=== PATIENT | male | born 1965 | race Caucasian/White ===

== ENCOUNTER → 2017-12-21 00:46 | Outpatient (CLI) | payer OTHER, SELFPAY ==
--- NOTE | 2017-12-21 08:15 | MERGEMPI_ITS ---
*[facility]* *[facility]* [address] [place] [address] Myocardial Perfusion Imaging - SPECT Jeff protocol Date of study: 12/21/2017 *PATIENT PRESENTATION* Height: 177.8cm (70in) Blood Pressure: Weight: 109.1kg (240lb) BSA: 2.36m^2 Referring physician: Michael Trevizo Ordering physician: Dinora Wilks Impressions: - Normal perfusion by Tc99m Sestamibi Imaging. - Abnormal contraction consistent with cardiomyopathy. - High risk of cardiac events. Summary: 1. Myocardial perfusion imaging: The left ventricle is hahh-qo-xxbnkkrpqa dilated. No myocardial perfusion defects noted. 2. The left ventricular end-systolic volume is 101ml. The calculated left ventricular ejection fraction after stress: 23%. LV global systolic function is severely reduced. Diffuse left ventricular regional motion abnormalities. 3. Stress ECG conclusions: The stress ECG is negative. 4. Stress: The target heart rate was achieved. The heart rate response to stress is exaggerated. There is a normal resting blood pressure with an appropriate response to stress. Stress-induced chest pain which resolved spontaneously. Exercise capacity is fair (5.8 METS). Recommendations: 1. Holter monitor should be performed to assess heart rate control. 2. Medical management for Afib and systolic heart failure is recommended. 3. Cardiology consult is recommended and has been arranged for 12/26/[address] Dan. Indication: I48.91. History: REASON FOR TESTING: Risk factors: REASON FOR TESTING: MY HEART WASN'T BEATING RIGHT- SEEN AT [facility] 11/21/17 FOR C/O COUGH, TOLE THAT HIS HEART RHYTHM WAS NOT NORMAL. ECHO DONE 12/07/[address] [facility]. IN ATRIAL FIBRILLATION ON ECHO. PMH: NEWLY DX WITH A FIB. FAMILY HX: NO FAMILY HX. SMOKING: NEVER SMOKER. EXCERCISE: NO REGULAR EXCERCISE. 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 Obesity. Cholesterol: 165mg/dl. HDL: 57mg/dl. LDL: 97mg/dl. Triglycerides: 80mg/dl. ALLERGIES: AMOXICILLIN, DOXYCYCLINE. MEDICATIONS: IBUPROFEN 600 MG TWICE DAILY. STARTED ON METOPROLOL 25 MG DAILY AND XARELTO 20 MG DAILY. Imaging Technique: Protocol: Jeff protocol. Acquisition: Gated SPECT; 1 day - rest/stress. The patient was imaged in the supine position. Attenuation correction used. Isotope administration: - Rest. Tc[99m]-sestamibi. Dose: 10.3mCi. Injection time: 08:15 AM. Injection to stress time: 00:45. - Stress. Tc[99m]-sestamibi. Dose: 33mCi. Injection time: 09:55 AM. 1-2 min before end of exercise Baseline ECG: NO EKG FOR COMPARISON, HAD ATRIAL FIBRILLATION ON ECHO, SEE ECHO REPORT FROM 12/07/17. TODAY'S EKG-ATRIAL FIBRILLATION, HR 104. Atrial fibrillation. Stress protocol: + +---+ + !Stage !HR !BP (mmHg) ! + +---+ + !Baseline supine !104!120/80 (93)! + +---+ + !Baseline standing !118!118/80 (93)! + +---+ + !Stage I; 1.7mph, 10degrees; 3 min!190!132/74 (93)! + +---+ + !Recovery; 1 min !182!120/68 (85)! + +---+ + !Recovery; 3 min !125!140/76 (97)! + +---+ + !Recovery; 6 min !117!114/78 (90)! + +---+ + * Stress results: Maximal heart rate during stress was 211bpm (124% of maximal predicted heart rate). The maximal predicted heart rate was 170bpm. The target heart rate was achieved. The heart rate response to stress is exaggerated. There is a normal resting blood pressure with an appropriate response to stress. The rate-pressure product for the peak heart rate and blood pressure was 39109wt Hg/min. Stress-induced chest pain which resolved spontaneously. Exercise capacity is fair (5.8 METS). Stress ECG: EXCERCISE TESTING ENDED IN 4 MINS DUE TO FATIGUE AND ELEVATED HR. MAX HR WAS 211, 124% OF TARGET. NORMAL BLOOD PRESSURE RESPONSE. METS: 5.81 ECTOPY: VEB'S NOTED, MOST OCCURED IN THE 2ND MINUTE OF RECOVERY. ANGINA: 2/10 CHEST TIGHTNESS REPORTED IN THE 3RD MINUTE OF EXCERCISE, NO LONGER PRESENT AT 2 MINS OF RECOVERY. ISCHEMIA: NO ISCHEMIC CHANGES NOTED FUNCTIONAL CAPACITY: MARKEDLY DIMINISHED CAPACITY. The stress ECG is negative. Tello treadmill score: 0. This score predicts a moderate risk of cardiac events. Myocardial perfusion: Imaging information: gated. The left ventricle is feun-ub-srwpmoultw dilated. No myocardial perfusion defects noted. Ventricular Function (Wall Motion): The left ventricular end-systolic volume is 101ml. The calculated left ventricular ejection fraction after stress: 23%. LV global systolic function is severely reduced. Diffuse left ventricular regional motion abnormalities. Study data: Michael Trevizo MD supervised and was readily available during the procedure. This study was interpreted by [facility]. Study status: Routine. Consent: The risks, benefits, and alternatives to the procedure were explained to the patient and informed consent was obtained. Procedure: Initial setup. A baseline ECG was recorded. Surface ECG leads and manual cuff blood pressure measurements were monitored. Heart sounds: Normal. Lung sounds: Normal. Treadmill exercise testing was performed using the Jeff protocol. Study completion: All catheters inserted during the procedure were removed. The patient tolerated the procedure well and was discharged from the lab. Discharge: The patient left the laboratory in stable condition. Birthdate: Patient birthdate: 1965. Sex: Gender: male. Study date: Study date: 12/21/2017. Study time: 12:30 PM. Signature Documentation: - The imaging portion of this study was interpreted by Nuclear Medical Chemist Michael Trevizo MD. - The Stress ECG portion of this study was interpreted by Michael Trevizo MD. Electronically signed by Michael Trevizo 12/21/2017 12:56
== END ==
PROVIDERS: PCP Nurse Practitioner; Visit Provider Nurse Practitioner
DX: I48.91 Unspecified atrial fibrillation (principal)
CPT/HCPCS: 78452; 93017

== ENCOUNTER → 2017-12-22 04:23 | Outpatient (CLI) | payer OTHER, SELFPAY ==
--- NOTE | 2017-12-26 10:43 | HOLTER_ITS ---
DATE OF DICTATION: December 26, 2017 Atrial fibrillation throughout recording period. Nocturnal heart rates approximately 70-80 bpm, daytime heart rates approximately 110-120 bpm. Rare single premature ventricular contractions vs aberrantly conducted beat. Ten couplets. No vent ricular tachycardia. Nocturnal heart rates as low as 60 bpm. Symptoms: Chest tightness noted 4 times during atrial fibrillation at 93-[address]/T wave yepez ges. Lightheadedness noted twice during atrial fibrillation at 118-121 bpm. Average heart rate 88 bpm, range 56-160 bpm.
== END ==
PROVIDERS: PCP Nurse Practitioner; Visit Provider Nurse Practitioner
DX: I48.91 Unspecified atrial fibrillation (principal); R07.89 Other chest pain; R42 Dizziness and giddiness
CPT/HCPCS: 93225

== ENCOUNTER → 2017-12-26 08:24 | Outpatient (CLI) | payer OTHER, SELFPAY | PROVIDERS: PCP Nurse Practitioner; Visit Provider Nurse Practitioner | DX: I48.91 Unspecified atrial fibrillation (principal); R07.89 Other chest pain; R42 Dizziness and giddiness | CPT/HCPCS: 93226 ==

== ENCOUNTER 2018-01-12 08:32 | Outpatient (CLI) | payer OTHER, SELFPAY ==
[2018-01-12 09:12] LABS: HCT 38.4 % (40.0-50.0); HGB 12.9 g/dL (13.5-17.5); Mean Corp. HGB Concentration 33.6 g/dL (32.0-36.0); Mean Corpuscular Volume 83.3 fL (80-95); Mean Platelet Volume 10.4 fL (8.0-11.0); Platelet Count 181 x1000/uL (130-400); RBC 4.61 m/cumm (4.50-6.00)
[2018-01-12 10:08] LABS: Anion Gap 3.8 mmol/L (3-11); BUN 20 mg/dL (7-18); CO2 29.2 mmol/L (21.0-32.0); CREATININE 0.93 mg/dL (0.70-1.30); Chloride 106 mmol/L (98-107); NT-proBNP 547 pg/mL; Potassium 4.1 mmol/L (3.5-5.1); Sodium 139 mmol/L (136-145)
== END 2018-01-12 08:33 ==
PROVIDERS: PCP Nurse Practitioner; Visit Provider Internal Medicine Interventional Cardiology
DX: I48.91 Unspecified atrial fibrillation (principal); I42.9 Cardiomyopathy, unspecified
CPT/HCPCS: 36415; 80051; 84520; 85027; 82565; 83880

== ENCOUNTER 2018-03-08 12:21 | Emergency (ER) | payer OTHER, SELFPAY ==
[2018-03-08] VITALS (11 sets, daily range): BP systolic 119–124; BP diastolic 60–84; PULSE 59–82; RESP 0–30; TEMP 37; O2SAT 94–99
--- NOTE | 2018-03-08 12:57 | DI.RAD_ITS ---
SYMPTOMS/DIAGNOSIS: PALPITATIONS PA AND LATERAL CHEST: There are no prior comparison exams. The heart is mildly enlarged. The lungs are well inflated and clear. No infiltrate, effusion or pulmonary edema is seen. IMPRESSION: Cardiomegaly. No acute abnormality.
--- NOTE | 2018-03-08 13:01 | ED.GENADUL_ITS ---
Discharge Plan Disposition Patient Disposition: HOME Condition: Fair Discharge Details Chief Complaint: Palpitatns Clinical Impression: Atrial fibrillation Primary Care Provider: Dinora Wilks ED Provider: Alexsandra Zhang Home Meds and New Rx's Prescriptions: New furosemide [Lasix] 20 mg tablet 40 mg PO DAILY Qty: 20 RF: 0 Continue ibuprofen 200 MG capsule 600 mg PO BID RF: 0 rivaroxaban [Xarelto] 20 MG tablet 20 mg PO DAILY RF: 0 spironolactone 25 MG tablet 12.5 mg PO DAILY Qty: 90 RF: 4 lisinopril 10 MG tablet 10 mg PO DAILY Qty: 90 RF: 4 Metoprolol Succinate 50 MG TAB.ER.24H 37.5 mg PO DAILY Qty: 90 RF: 4 Discontinued furosemide 20 mg tablet 20 mg PO DAILY Qty: 30 RF: 3 Discharge Instructions Instructions: Atrial Fibrillation (ED) Additional Instructions: Increase dosing of Lasix to 40mg daily. Please follow previous recommendations made by Dr. Dan. Keep appointment for Tuesday. If you develop shortness of breath, difficulty breathing, chest pain or other new/worsening symptoms please seek care urgently once again Referrals: Ben Dan MD [ NON-[facility] STAFF PHYSICIAN] - Dinora Wilks [Primary Care Provider] - Medical Decision Making Patient 52-year-old male, accompanied by his , with chief complaint of palpitations. Patient has known history of atrial fibrillation. He has been rate controlled since November metoprolol. States that he is asymptomatic. Denies any chest pain. States he had cough since his diagnosis in November of atrial fibrillation. However, recently the cough is increased. Also reports that he has had weight gain over the past 3 days of 5 pounds. 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 Patient has not been cardioverted historically. Patient appears nontoxic. Heart is regular. Pulse is 82, patient's oxygen is 95% on room air. He is afebrile. No nasal congestion, sore throat. He denies any GI upset. Calves are soft and nontender with no edema noted. Patient is on spironolactone and furosemide. Patient has history of cardiomyopathy, concern for sleep apnea. Patient is followed by Dr. Dan. Plan to obtain laboratory evaluation chest x-ray. At this point, I do not see an imminent need to cardiovert the patient. Lungs are clear. No pedal edema. Patient is well rate controlled with a rate of 82. Not hypoxic. Patient last ate 1 hour ago. will obtain chest x-ray to evaluate. We will consult with cardiology EKG reviewed by Dr. Louis Christiansen, please see his note. Patient is noted to be irregularly irregular with consistent with his history of atrial fibrillation, no acute ischemic changes noted Laboratory evaluation without significant abnormality. His BNP is elevated at over 700 but this is only slightly elevated from when this was assessed a few months ago. Troponin is less than 0.02. Discussed chest x-ray with the radiologist. She notes cardiomegaly but no acute abnormalities in the lungs. Patient reports that he has known cardiomegaly. Consulted with Dr. Dan. He reports that he had plan to cardiovert the patient this past Tuesday but was unable to keep the appointment. has now reviewed laboratory evaluation, patient's clinical presentation. At this point , he does not feel the patient needs to be emergently cardioverted. He advised he will see the patient next week. He is asked that I increase his Lasix from 20 mg daily to 40. Discussed this plan with the patient. Patient's was able to contact Dr. Dan office and get an appointment for cardioversion on Tuesday. Discussed plan with the patient his . He was given a prescription for Lasix. His appointment with cardiology on Tuesday for cardioversion and his preparatory guidelines. We discussed new/worsening symptoms when to seek care urgently once again. All his questions and concerns were addressed and he is in agreement this plan. [facility] General Mode of arrival: ambulatory . Date/Time Provider Initiated Documentation: 03/08/18 12:29 . Limitations to Documentation: no limitations . Information obtained by: patient and family . History of Present Illness 52 year old M presents to the emergency department with the chief complaint of cough, weight gain, described as moderate (denies any pain), Patient denies radiation to back, neck and abdomen. Patient started experiencing this month(s ) and it has been constant. No relieving factors improve symptom(s), No exacerbating factors reported . Patient notes cough; denies chest pain, fever/ chills, headaches, loss of appetite, nausea/vomiting, rash, shortness of breath and syncope. Related Data Home Medications Medication Instructions Recorded Confirmed ibuprofen 600 mg PO BID 06/23/16 03/08/18 lisinopril 10 mg PO DAILY #90 tab 12/26/17 03/08/18 rivaroxaban [Xarelto] 20 mg PO DAILY tab-cap 12/26/17 03/08/18 spironolactone 12.5 mg PO DAILY #90 tab-cap 12/26/17 03/08/18 furosemide [Lasix] 40 mg PO DAILY #20 tab 03/08/18 Previous Rx's Medication Instructions Recorded lisinopril 10 mg PO DAILY #90 tab 12/26/17 spironolactone 12.5 mg PO DAILY #90 tab-cap 12/26/17 furosemide [Lasix] 40 mg PO DAILY #20 tab 03/08/18 Allergies Allergy/AdvReac Type Severity Reaction Status Date / Time doxycycline Allergy Intermediate Hives Unverified 03/08/18 12:35 amoxicillin Allergy Unknown Hives Unverified 03/08/18 12:35 General Stated Complaint: Palpitatns KYREE: 3 Review of Systems Constitutional Reports as per HPI and Denies headache(s) ENT Denies headache(s) Cardiovascular Reports as per HPI, Denies chest pain, Denies syncope, Denies palpitations and Reports dyspnea on exertion Respiratory Reports cough (reports cough for the past several months, it has been increasing in frequency), Denies pain on inspiration, Denies pain with cough and Reports dyspnea on exertion Gastrointestinal Denies abdominal pain, Denies change in stool character, Denies nausea and Denies vomiting Musculoskeletal Denies back pain Integumentary/Breasts Denies rash Neurologic Denies syncope, Denies headache(s) and Denies focal weakness Endocrine Denies palpitations [facility] Social History Smoking/Tobacco Use Status: Never Exam Const General: cooperative, healthy appearing, comfortable, no acute distress, well developed and well groomed Nutritional Appearance: well nourished and overweight Orientation: alert and awake Eyes General: appearance normal, both eyes and all related structures Resp Effort & Inspection: normal respiratory effort, able to speak in complete sentences and no respiratory distress Auscultation: clear to auscultation bilaterally, no rales, no rhonchi and no wheezes Cardio Rate: regular rate Rhythm: abnormal rhythm irregularly irregular Heart Sounds: S1 normal and S2 normal GI Inspection: normal to inspection Palpation: soft, not firm, no guarding and nontender Skin General skin exam: no rashes or lesions noted Lesions: no lesions Rashes: no rashes Neuro General: alert Cognition: normal cognition Speech: speech normal Gait: normal gait Extrem General: no pedal edema, no calf tenderness and normal gait Psych Appearance: grossly normal and well kempt Mental Status: mental status grossly normal Speech and Movement: speech and movement normal Mood: congruent mood Course Vital Signs Temperature 37 C 03/08/18 12:32 Pulse 82 03/08/18 12:32 Respiratory Rate 20 03/08/18 12:32 Blood Pressure 123/76 03/08/18 12:32 Pulse Oximetry 95 03/08/18 12:32 Temperature 37 C 03/08/18 12:32 Temperature Source Skin 03/08/18 12:32 Pulse 82 03/08/18 12:32 Respiratory Rate 20 03/08/18 12:32 Respiratory Effort Non-Labored 03/08/18 12:32 Blood Pressure 123/76 03/08/18 12:32 Blood Pressure Position Supine 03/08/18 12:32 Pulse Oximetry 95 03/08/18 12:32 Oxygen Delivery Method Room Air 03/08/18 12:32 Oxygen Flow Rate 0 03/08/18 12:32 Pain Level 0 03/08/18 12:32
[2018-03-08] MEDS: Normal Saline 1,000 ML 150 ML IV (13:10)
[2018-03-08 13:15] LABS: Abs Immature Grans 0.01 k/cumm (0.0-0.09); Absolute Basophil Count 0.02 k/cumm (0.0-0.2); Absolute Eosinophil Count 0.23 k/cumm (0.0-0.7); Absolute Lymphocyte Count 1.93 k/cumm (1.2-3.4); Absolute Monocyte Count 0.46 k/cumm (0.11-0.7); Absolute Neutrophil Count 3.95 k/cumm (1.2-6.7); Basophils % 0.3; Eosinophils % 3.5; HCT 39.9 % (40.0-50.0); HGB 13.4 g/dL (13.5-17.5); Immature Grans % 0.2; Lymphocytes % 29.2; Mean Corp. HGB Concentration 33.6 g/dL (32.0-36.0); Mean Corpuscular Hemoglobin 27.7 pg (27.0-33.0); Mean Corpuscular Volume 82.6 fL (80-95); Mean Platelet Volume 10.1 fL (8.0-11.0); Neutrophils % 59.8; Platelet Count 209 x1000/uL (130-400); RBC 4.83 m/cumm (4.50-6.00); RBC Distribution Width 13.4 % (11.8-14.1)
[2018-03-08 13:32] LABS: ALT 85 U/L (12-78); AST 32 U/L (15-37); Albumin 3.5 g/dL (3.4-5.0); Alkaline Phosphatase 64 U/L (46-116); Anion Gap 7.5 mmol/L (3-11); BUN 19 mg/dL (7-18); Bilirubin, Total 0.3 mg/dL (0.2-1.0); CO2 30.5 mmol/L (21.0-32.0); CREATININE 0.98 mg/dL (0.70-1.30); Calcium 8.9 mg/dL (8.5-10.1); Chloride 102 mmol/L (98-107); Glucose 90 mg/dL (70-100); Magnesium 1.7 mg/dL (1.8-2.4); Potassium 3.7 mmol/L (3.5-5.1); Sodium 140 mmol/L (136-145); Total Protein 7.4 g/dL (6.4-8.2); Troponin I < 0.02 ng/mL (0.00-0.06)
[2018-03-08 13:40] LABS: NT-proBNP 756 pg/mL; TSH 2.01 uIU/mL (0.358-3.74)
== END 2018-03-08 15:26 | disposition home or self-care (01) ==
PROVIDERS: Emergency Provider Physician Assistant; PCP Nurse Practitioner
DX: I48.91 Unspecified atrial fibrillation (principal)
CPT/HCPCS: 36415; 80053; 93005; 96360; 96361; 99285; 71046; 83735; 83880; 84443; 84484; 85025; 93010

== ENCOUNTER 2018-03-13 08:24 | Outpatient (CLI) | payer OTHER, SELFPAY ==
[2018-03-13] VITALS (7 sets, daily range): BP systolic 107–119; BP diastolic 55–85; PULSE 61–107; RESP 14–20; TEMP 35.5–36.5; O2SAT 95–98
[2018-03-13] MEDS: Normal Saline 1,000 ML 30 ML IV (09:05)
--- NOTE | 2018-03-13 09:28 | NUR.NOTE ---
03/13/18 0925: CALLED CARDIOLOGY AND SPOKE WITH DR. BLACKMON CREDIT BALANCE SPECIALIST KAVIN THIS RN REQUESTED H&P WITHIN 30 DAYS. CURRENT H&P DATED 12/26/17. KAVIN STATED HE IS NOT GOING TO PUT A CURRENT H&P IN THE COMPUTER TODAY. KAVIN FAXED MOST 12/26/17 H&P. HARDCOPJaye IN CHART Nursing Note:
--- NOTE | 2018-03-13 10:22 | W.CARDVER ---
Cardioversion Date: March 13, 2018 Patient: Travis Olivas Procedure note: DC CV Patient with history of atrial fibrillation. A. fib is at least several months in duration. Has been on rivaroxaban faithfully for at least 4 weeks continuously. Risks and benefits of procedure explained to patient. Sedation provided by anesthesia. After a single application 200 J biphasic energy the patient is restored to sinus rhythm. Complications: None. Plan: Will obtain 24-hour Holter monitor in 2 weeks. We will continue metoprolol succinate 25 mg daily. Thank you for allowing me to participate in this patient's care. Sincerely: Ben Dan M.D., [facility].
--- NOTE | 2018-03-13 13:57 | NUR.NOTE ---
03/13/18 1115: PT. DISCHARGED PER DR. BLACKMON ORDERS. PT. STABLE NSR, VSS. REQUESTING PT. TO AMBULATE UP TO [facility] FOR APPOINTMENT WITH DR. BLACKMON PER ORDER. PT. STABLE UPON DISCHARGE. ACCOMPANIED TO [facility]TY [facility]ICS WITH . Nursing Note:
== END 2018-03-13 08:44 ==
PROVIDERS: PCP Nurse Practitioner; Visit Provider Internal Medicine Interventional Cardiology
DX: I48.91 Unspecified atrial fibrillation (principal); Z79.01 Long term (current) use of anticoagulants
CPT/HCPCS: 92960

== ENCOUNTER 2018-03-27 02:09 | Outpatient (CLI) | payer OTHER, SELFPAY ==
--- NOTE | 2018-03-28 16:00 | HOLTER_ITS ---
Date of dictation: March 28, 2018 Requesting Provider: Ben Dan M.D. Study Indication: Atrial fibrillation. Findings: The patient was monitored for 1 day and 8 minutes. The baseline rhythm was sinus rhythm. Average heart rate 65 bpm, range 49-118 bpm. There were 28 PVCs. There was no ventricular tachycardia. There were 85 PACs. There were 2 atrial runs, the longest 9 beats, the fastest 139 bpm. There was nocturnal bradycardia. There was no high-degree heart block. There were no pauses greater than 3 seconds. There were no symptoms reported. Final Interpretation: No significant tachy or brandi arrhythmias.
== END 2018-03-27 02:29 ==
PROVIDERS: PCP Nurse Practitioner; Visit Provider Internal Medicine Interventional Cardiology
DX: I48.91 Unspecified atrial fibrillation (principal); R00.1 Bradycardia, unspecified
CPT/HCPCS: 93225

== ENCOUNTER 2018-03-28 12:03 | Outpatient (CLI) | payer OTHER, SELFPAY | END 2018-03-28 12:23 | PROVIDERS: PCP Nurse Practitioner; Visit Provider Nurse Practitioner | DX: I48.91 Unspecified atrial fibrillation (principal); R00.1 Bradycardia, unspecified | CPT/HCPCS: 93226 ==

== ENCOUNTER 2018-04-03 10:15 | Outpatient (CLI) | payer OTHER, SELFPAY | END 2018-04-03 10:35 | PROVIDERS: PCP Nurse Practitioner; Visit Provider Internal Medicine Interventional Cardiology | DX: I48.91 Unspecified atrial fibrillation (principal); I42.9 Cardiomyopathy, unspecified | CPT/HCPCS: 93005; 93010 ==

== ENCOUNTER 2018-04-26 08:37 | Outpatient (CLI) | payer OTHER, SELFPAY ==
[2018-04-26 09:32] LABS: HCT 39.1 % (40.0-50.0); HGB 13.1 g/dL (13.5-17.5); Mean Corp. HGB Concentration 33.5 g/dL (32.0-36.0); Mean Corpuscular Hemoglobin 27.6 pg (27.0-33.0); Mean Corpuscular Volume 82.5 fL (80-95); Mean Platelet Volume 10.1 fL (8.0-11.0); Platelet Count 205 x1000/uL (130-400); RBC 4.74 m/cumm (4.50-6.00); RBC Distribution Width 13.1 % (11.8-14.1); White Blood Cell Count 5.31 k/cumm (4.4-10.8)
[2018-04-26 10:43] LABS: Anion Gap 9.2 mmol/L (3-11); BUN 17 mg/dL (7-18); CO2 30.8 mmol/L (21.0-32.0); CREATININE 0.98 mg/dL (0.70-1.30); Chloride 102 mmol/L (98-107); NT-proBNP 118 pg/mL; Sodium 142 mmol/L (136-145)
== END 2018-04-26 08:57 ==
PROVIDERS: PCP Nurse Practitioner; Visit Provider Internal Medicine Interventional Cardiology
DX: I48.91 Unspecified atrial fibrillation (principal); I42.9 Cardiomyopathy, unspecified
CPT/HCPCS: 36415; 80051; 84520; 85027; 82565; 83880

== ENCOUNTER 2018-05-04 10:20 | Emergency (ER) | payer OTHER, SELFPAY ==
[2018-05-04] VITALS (50 sets, daily range): BP systolic 97–125; BP diastolic 49–87; PULSE 53–103; RESP 11–29; TEMP 36.6–36.8; O2SAT 95–100
[2018-05-04] MEDS: Normal Saline 1,000 ML 1000 ML IV (10:36)
--- NOTE | 2018-05-04 10:39 | ED.GENADUL_ITS ---
Addendum entered and electronically signed by Ben Santos M.D. 05/04/18 12:57: Pt consented to synchronized cardioversion with propofol after being instructed on risks and benefits and has capcaity to make his own decisions. He was given 100mg propofol and had etco2, tele monitoring and spo2 monitoring. He had one 200J synchronized defib given with successful conversion to sinus rhythm. no complications, tolerated well 2nd ekg shows sinus rhythm with rate of 68, occasional pac, pr 170, no acute st t wave changes Original Note: Medical Decision Making <REAL Arellano - Last Filed: 05/04/18 22:04> Patient is a 52 year old male, accompanied by , with c/c of chest pressure and palpitations that began yesterday. Patient has history of atrial fibrillation. Was initially diagnosed in November of this year and cardioverted 1 month ago. Patient is currently anticoagulated on Xarelto, takes metoprolol daily. His atrial fibrillation is typically asymptomatic. He was seen by myself approximately 2 months ago with palpitations. At that point, I did consult with cardiology who opted to cardiovert him in a more controlled manner in their setting. Patient is unclear as to when the symptoms initially began. Was initially concerned that he was just having stress at work yesterday. He states that yesterday the pain was more severe, centrally located, nonradiating. Reports he was quite diaphoretic yesterday when he had the symptoms initially. Is currently rating his chest pressure at a 1 out of 10. Has occasional palpitations. No nausea or vomiting. No back pain. No recent illness. Denies any shortness of breath. On exam, patient is resting comfortably. Is not having irregularly irregular rhythm. Patient does seem well rate controlled with heart rate in the 70s-80s. No lower extremity edema or posterior calf discomfort. EKG was reviewed by Dr. Santos, please see his note. Patient is noted to be in atrial fibrillation but no acute ischemic changes noted As the patient's symptoms, particularly yesterday, seem atypical from his atrial fibrillation symptoms he has had historically, I am concerned for possible addition of ischemic injury. No previous diagnosis of CAD. Plan to obtain laboratory evaluation, chest x-ray and consult cardiology. Reviewed last cardiology noted. Patient began CPAP last week per his . [employer] Service [employer] had noted exertional dypnes which the patient is currently denying. Questioned his about this who advises that the patient feels this has been improving over recent weeks but she still notes him needing to slow down during exertion, more so than he had previously. Last echo November 2017, LVEF 30-35%. diffuse hypokinesia. Right ventricle mildly dilated, normal systolic function. 1+ MR. Atrial fibrillation. Stress test December 2017. PVC noted, no EKG changes. Normal perfusion. LV dilated. LVEF 23% with diffuse hypokinesia. Consulted with Dr. Dan regarding patient laboratory evaluation, current symptoms and recurrence of his atrial fibrillation he advised cardioversion and patient tolerance. Is asked that I bump his metoprolol to 50 daily. He is requested that another echo be performed prior to upcoming appointment. He advised he would like to see the patient in another 2 weeks. Discussed these recommendations with the patient is in detail. I discussed risk/benefits of conscious sedation as well as cardioversion. Patient has had cardioversion successfully in the past with propofol. Consents were signed. Propofol was administered by Dr. Santos, once the patient was sufficiently sedated, he was cardioverted in synchronized setting of 200 J. This appeared to have worked. Repeat EKG was performed and reviewed by Dr. Santos. Patient is in normal sinus rhythm Patient feeling well after cardioversion. Rate is now in the low 60s. Consult with Dr. Dan once again regarding patient's lower heart rate and the increase of metoprolol. He advised at this point he would keep it as it is and not increase the dosing Discussed this plan with the patient. We discussed new/worsening symptoms when to seek care urgently once again. Advised follow-up with Dr. Dan. Appointment for follow-up as well as echocardiogram was made and appointment times given to the patient. All of his questions and concerns were addressed and he is in agreement with this plan. <Ben Santos MD - Last Filed: 05/04/18 12:57> ECG Data Attestation: I personally reviewed and interpreted this ECG (s) as follows: Prior ECG tracings: available for review Interpretation: atrial fibrillation, qtc of 448, no acute st t wave changes HPI <REAL Arellano - Last Filed: 05/04/18 22:04> General Mode of arrival: ambulatory . Date/Time Provider Initiated Documentation: 05/04/18 10:24 . Limitations to Documentation: no limitations . Information obtained by: patient and family . History of Present Illness 52 year old M presents to the emergency department with the chief complaint of chest pressure, described as mild, with intensity rated at 1. Quality is described as other (pressure), and is localized to the chest. Patient reports no radiation. Patient started experiencing this day(s) (1) and it has been constant. No relieving factors improve symptom(s), No exacerbating factors reported . Patient notes chest pain; denies cough, fever/chills, loss of appetite, nausea/vomiting, rash, shortness of breath, syncope and weakness. Patient did receive the following treatments prior to arrival, none Related Data Home Medications Medication Instructions Recorded Confirmed ibuprofen 600 mg PO BID 06/23/16 05/04/18 Xarelto 20 mg PO DAILY tab-cap 12/26/17 05/04/18 furosemide 20 mg tablet 20 mg PO DAILY #20 tab 03/14/18 05/04/18 losartan 25 mg tablet 25 mg PO DAILY #90 tab 04/04/18 05/04/18 spironolactone 25 mg tablet 12.5 mg PO DAILY #90 tab 04/04/18 05/04/18 Previous Rx's Medication Instructions Recorded furosemide 20 mg tablet 20 mg PO DAILY #20 tab 03/14/18 losartan 25 mg tablet 25 mg PO DAILY #90 tab 04/04/18 spironolactone 25 mg tablet 12.5 mg PO DAILY #90 tab 04/04/18 Allergies Allergy/AdvReac Type Severity Reaction Status Date / Time doxycycline Allergy Intermediate Hives Unverified 05/04/18 10:32 amoxicillin Allergy Unknown Hives Unverified 05/04/18 10:32 General Stated Complaint: Palpitatns KYREE: 2 Review of Systems <REAL Arellano - Last Filed: 05/04/18 22:04> Constitutional Reports as per HPI, Denies chills, Denies fever(s), Denies headache(s), Denies lethargy and Denies poor appetite Eyes Denies change in vision ENT Denies headache(s) Cardiovascular Reports as per HPI, Reports chest pain, Reports diaphoresis (yesterday, since resolved), Denies syncope, Denies rapid heart rate, Denies pedal edema, Denies edema, Reports irregular heart rhythm, Denies leg edema, Denies lightheadedness, Denies radiating jaw, neck or arm pain, Reports palpitations, Denies dyspnea and Denies dyspnea on exertion Respiratory Reports as per HPI, Denies cough, Denies dyspnea, Denies dyspnea on exertion and Denies wheezing Gastrointestinal Reports as per HPI, Denies abdominal pain, Denies diarrhea, Denies nausea and Denies vomiting Genitourinary Denies system reviewed and no additional complaints, except as docu (denies change in urinary habits) Musculoskeletal Reports as per HPI and Denies back pain Integumentary/Breasts Reports as per HPI and Denies rash Neurologic Denies syncope and Denies headache(s) Endocrine Reports palpitations Allergic/Immunologic Denies wheezing PFSH <REAL Arellano - Last Filed: 05/04/18 22:04> Social History Smoking/Tobacco Use Status: Never Exam <REAL Arellano - Last Filed: 05/04/18 22:04> Const General: cooperative, healthy appearing, comfortable, no acute distress and well developed Nutritional Appearance: average body habitus and well nourished Orientation: alert, awake and oriented x3 HENMT Head: normal to inspection Ears: hearing grossly normal bilaterally Mouth: moist mucous membranes Chest Chest: normal inspection of the chest, normal palpation of entire chest wall and no crepitus Resp Effort & Inspection: normal respiratory effort, able to speak in complete sentences and no respiratory distress Auscultation: clear to auscultation bilaterally, no rales, no rhonchi and no wheezes Cardio Rate: regular rate Rhythm: regular rhythm and abnormal rhythm Heart Sounds: S1 normal and S2 normal GI Inspection: normal to inspection, no edema and non-distended Palpation: soft, no hepatosplenomegaly, not firm, no guarding, not rigid and nontender Auscultation: normal bowel sounds Back/Spine/Pelvis Back: no CVA tenderness Thoracic/Lumbar Spine: thoracic and lumbar spine normal to inspection Skin General skin exam: no rashes or lesions noted Trauma: no lacerations or abrasions Neuro General: alert, awake and oriented x3 Cognition: normal cognition Speech: speech normal Gait: normal gait Extrem General: normal to inspection, normal capillary refill, no pedal edema, no calf tenderness and normal gait Psych Appearance: grossly normal and well kempt Mental Status: mental status grossly normal Speech and Movement: speech and movement normal Course <REAL Arellano - Last Filed: 05/04/18 22:04> Vital Signs Pulse 90 05/04/18 10:19 Respiratory Rate 18 05/04/18 10:19 Blood Pressure 125/87 05/04/18 10:19 Pulse Oximetry 97 05/04/18 10:19 Temperature 36.7 C 05/04/18 10:20 Temperature Source Tympanic 05/04/18 10:20 Pulse 83 05/04/18 10:30 Pulse 92 H 05/04/18 10:31 Respiratory Rate 19 05/04/18 10:31 Respiratory Effort Non-Labored 05/04/18 10:30 Blood Pressure 110/81 05/04/18 10:30 Blood Pressure Mean 88 05/04/18 10:30 Blood Pressure Position Supine 05/04/18 10:20 Pulse Oximetry 96 05/04/18 10:31 Oxygen Delivery Method Room Air 05/04/18 10:20 Oxygen Flow Rate 0 05/04/18 10:20 Pain Level 1 05/04/18 10:34
[2018-05-04 10:45] LABS: Abs Immature Grans 0.01 k/cumm (0.0-0.09); Absolute Basophil Count 0.03 k/cumm (0.0-0.2); Absolute Eosinophil Count 0.27 k/cumm (0.0-0.7); Absolute Lymphocyte Count 2.08 k/cumm (1.2-3.4); Absolute Monocyte Count 0.46 k/cumm (0.11-0.7); Absolute Neutrophil Count 3.64 k/cumm (1.2-6.7); Basophils % 0.5; Eosinophils % 4.2; HCT 40.8 % (40.0-50.0); HGB 13.8 g/dL (13.5-17.5); Immature Grans % 0.2; Mean Corp. HGB Concentration 33.8 g/dL (32.0-36.0); Mean Corpuscular Hemoglobin 27.8 pg (27.0-33.0); Mean Corpuscular Volume 82.3 fL (80-95); Mean Platelet Volume 10.5 fL (8.0-11.0); Monocytes % 7.1; Platelet Count 210 x1000/uL (130-400); RBC 4.96 m/cumm (4.50-6.00); RBC Distribution Width 13.3 % (11.8-14.1); White Blood Cell Count 6.49 k/cumm (4.4-10.8)
--- NOTE | 2018-05-04 11:02 | DI.RAD_ITS ---
SYMPTOM/DIAGNOSIS: CHEST PRESSURE PA AND LATERAL CHEST: The lungs are well expanded and free of infiltrate. There is no pleural effusion. The heart is top limits of normal in size to mildly enlarged. There is some ectasia and unfolding of the thoracic aorta. The hilar structures, mediastinum and tracheal air column are intact. SUMMARY: Mild cardiomegaly. No evidence of acute cardiopulmonary disease.
[2018-05-04 11:04] LABS: ALT 106 U/L (12-78); AST 37 U/L (15-37); Albumin 3.6 g/dL (3.4-5.0); Alkaline Phosphatase 66 U/L (46-116); Anion Gap 8.1 mmol/L (3-11); BUN 21 mg/dL (7-18); Bilirubin, Total 0.5 mg/dL (0.2-1.0); CO2 29.9 mmol/L (21.0-32.0); CREATININE 1.07 mg/dL (0.70-1.30); Calcium 9.1 mg/dL (8.5-10.1); Chloride 103 mmol/L (98-107); Glucose 97 mg/dL (70-100); Magnesium 1.6 mg/dL (1.8-2.4); Potassium 4.2 mmol/L (3.5-5.1); Sodium 141 mmol/L (136-145); TSH 1.84 uIU/mL (0.358-3.74); Total Protein 7.8 g/dL (6.4-8.2)
[2018-05-04 11:08] LABS: Troponin I < 0.02 ng/mL (0.00-0.06)
[2018-05-04] MEDS: Propofol 200 MG/20 ML VIAL 100 MG IVP (12:48)
== END 2018-05-04 14:15 | disposition home or self-care (01) ==
PROVIDERS: Emergency Provider Physician Assistant; PCP Nurse Practitioner
DX: I48.91 Unspecified atrial fibrillation (principal); R00.2 Palpitations; Z79.01 Long term (current) use of anticoagulants
CPT/HCPCS: 36415; 80053; 93005; 96360; 71046; 83735; 84443; 84484; 85025; 93010

== ENCOUNTER 2018-05-11 01:30 | Outpatient (CLI) | payer OTHER, SELFPAY ==
--- NOTE | 2018-05-11 07:30 | MERGE_ITS ---
*[facility]* *[facility]* [address] [place] [address] Date of study: 05/11/2018 Transthoracic Echocardiography M-mode, complete 2D, complete spectral Doppler, and color Doppler *STUDY CONCLUSIONS* Summary: 1. Left ventricle: The cavity size was normal. Systolic function was mildly reduced. The estimated ejection fraction was 45-50%. Mild global HK, moderate hypokinesis of the inferior myocardium. Diastolic parameters were normal for age. There was no evidence of elevated ventricular filling pressure by Doppler parameters. 2. Mitral valve: There was mild regurgitation. 3. Right ventricle: The cavity size was mildly dilated. Systolic function was mildly reduced. 4. Right atrium: The atrium was moderately dilated. 5. Atrial septum: There was a small patent foramen ovale. There was a very small [id number] shunt. 6. Pulmonary arteries: Pulmonary systolic pressure was in the range of 30mm Hg to 40mm Hg. 7. Inferior vena cava: The vessel was patent and normal in size. The respirophasic diameter changes were in the normal range (greater than or equal to 50%), consistent with normal central venous pressure. *PATIENT PRESENTATION* Height: 177.8cm ((70in) ) S/D Pressure: 120 / 72 Weight: 113.4kg ((249.5lb) ) BSA: 2.41m^2 Test start time: 07:40 AM. Test stop time: 08:35 AM. ORDERING Ben Dan MD REFERRING Ben Dan MD PERFORMING [facility] CONSULTING Dinora Wilks [employer] Riya Hough RT (R)(CT), [facility] *PROCEDURE DATA* Procedure information: The patient was identified by two identifiers. This study was interpreted by [facility]. Pertinent images and digital data are archived for permanent storage and are available for subsequent review. Comparison was made to the study of 12/07/2017. Study status: Routine. Transthoracic echocardiography. M-mode, complete 2D, complete spectral Doppler, and color Doppler. A Transthoracic Echocardiogram was performed. Scanning was performed from the parasternal, apical, subcostal, and suprasternal notch acoustic windows. Images were obtained using an [id number] cardiac ultrasound machine. Image quality was adequate. Study completion: The patient tolerated the procedure well. History: PMH: Afib *CARDIAC ANATOMY* Left ventricle: The cavity size was normal. Systolic function was mildly reduced. The estimated ejection fraction was 45-50%. Regional wall motion abnormalities: Moderate hypokinesis of the inferior myocardium. The tissue Doppler parameters were normal. Diastolic parameters were normal for age. There was no evidence of elevated ventricular filling pressure by Doppler parameters. Aortic valve: Trileaflet. Doppler: There was no stenosis. There was no regurgitation. VTI ratio of LVOT to aortic valve: 0.68. Valve area (VTI): 2.3cm^2. Indexed valve area (VTI): 1cm^2/m^2. Peak velocity ratio of LVOT to aortic valve: 0.63. Valve area (Vmax): 2.2cm^2. Indexed valve area (Vmax): 0.9cm^2/m^2. Mean velocity ratio of LVOT to aortic valve: 0.71. Valve area (Vmean): 2.4cm^2. Indexed valve area (Vmean): 1cm^2/m^2. Mean gradient (S): 4.6mm Hg. Peak gradient (S): 8.8mm Hg. Aorta: Aortic root: The aortic root was normal in size. Mitral valve: Doppler: There was no evidence for stenosis. There was mild regurgitation. Valve area by pressure half-time: 3.3cm^2. Indexed valve area by pressure half-time: 1.4cm^2/m^2. Left atrium: The atrium was normal in size. Atrial septum: There was a small patent foramen ovale. There was a very small [id number] shunt. Right ventricle: The cavity size was mildly dilated. Systolic function was mildly reduced. Pulmonic valve: Doppler: There was no evidence for stenosis. There was trivial regurgitation. Peak gradient (S): 4.7mm Hg. Tricuspid valve: Doppler: There was mild regurgitation. Pulmonary artery: Poorly visualized. Pulmonary systolic pressure was in the range of 30mm Hg to 40mm Hg. Right atrium: The atrium was moderately dilated. Pericardium: There was no pericardial effusion. Systemic veins: Inferior vena cava: Well visualized. The vessel was patent and normal in size. The respirophasic diameter changes were in the normal range (greater than or equal to 50%), consistent with normal central venous pressure. Baseline ECG: Sinus bradycardia. Measurements Left ventricle Value 12/07/2017 Reference LV ID, ED, PLAX 6.0 cm 6.0 3.5 - 6.0 LV ID, ES, PLAX (H) 4.8 cm 5.0 2.1 - 4.0 LV PW thickness, ED, PLAX 0.9 cm 0.8 LV end-diastolic volume, 158 ml 124 1-p A2C LV ejection fraction, 1-p 50 % 32 A2C LV end-diastolic volume, 169 ml 112 1-p A4C LV ejection fraction, 1-p 48 % 28 A4C LV e', lateral 0.095 m/sec 0.1 LV E/e', lateral 7 9 LV e', medial 0.09 m/sec 0.097 LV E/e', medial 7 10 LV e', average 0.093 m/sec 0.098 LV E/e', average 7 10 Ventricular septum Value 12/07/2017 Reference IVS thickness, ED, PLAX 0.9 cm 1.0 LVOT Value 12/07/2017 Reference LVOT ID, A-P 2.1 cm 2.1 LVOT area 3.4 cm^2 3.5 LVOT peak velocity, S 0.94 m/sec 0.86 LVOT mean velocity, S 0.73 m/sec 0.61 LVOT VTI, S 21.7 cm 16.6 LVOT peak gradient, S 3.5 mm Hg 2.9 LVOT mean gradient, S 2.3 mm Hg 1.7 Stroke volume (SV), LVOT 74 ml 58 DP Stroke index (SV/bsa), 31 ml/m^2 23 LVOT DP Aortic valve Value 12/07/2017 Reference Aortic valve peak 1.5 m/sec 1.2 velocity, S Aortic valve mean 1.04 m/sec 0.9 velocity, S Aortic valve VTI, S 32.0 cm 21.6 Aortic mean gradient, S 4.6 mm Hg 3.5 Aortic peak gradient, S 8.8 mm Hg 5.6 VTI ratio, LVOT/AV 0.68 0.77 Aortic valve area, VTI 2.3 cm^2 2.7 Velocity ratio, peak, 0.63 0.73 LVOT/AV Aortic valve area, peak 2.2 cm^2 velocity Velocity ratio, mean, 0.71 0.68 LVOT/AV Aortic valve area, mean 2.4 cm^2 2.4 velocity Aortic valve area/bsa, 1 cm^2/m^2 0.9 mean velocity Aorta Value 12/07/2017 Reference Aortic root ID, ED 2.9 cm 2.9 Left atrium Value 12/07/2017 Reference LA ID, A-P, ES 4.1 cm 4.4 LA ID/bsa, A-P 1.7 cm/m^2 1.7 <=2.2 LA area, ES, A4C (H) 24.2 cm^2 22.1 8.8 - 23.4 LA area, ES, A2C 21 cm^2 22 LA volume/bsa, ES, 1-p A4C 35 ml/m^2 32 LA volume, ES, 2-p 73 ml 74 LA volume/bsa, ES, 2-p 30 ml/m^2 29 LA/aortic root ratio 1.38 1.52 Mitral valve Value 12/07/2017 Reference Mitral E-wave peak 0.68 m/sec 0.95 velocity Mitral A-wave peak 0.59 m/sec velocity Mitral deceleration time 228 ms 157 150 - 230 Mitral pressure half-time 66 ms 46 Mitral E/A ratio, peak 1.15 Mitral valve area, PHT, DP 3.3 cm^2 4.8 Pulmonary veins Value 12/07/2017 Reference Pulmonary vein peak 0.27 m/sec 0.47 velocity, S Pulmonary vein peak 0.42 m/sec 0.43 velocity, D Pulmonary vein velocity 0.64 1.09 ratio, peak, S/D Pulmonary vein A-wave 0.21 m/sec reversal peak velocity Tricuspid valve Value 12/07/2017 Reference Tricuspid regurg peak 2.6 m/sec 2.5 velocity Tricuspid peak RV-RA 26.1 mm Hg 24.4 gradient Right atrium Value 12/07/2017 Reference RA area, ES, A4C (H) 25.2 cm^2 25.8 8.3 - 19.5 Pulmonic valve Value 12/07/2017 Reference Pulmonic peak gradient, S 4.7 mm Hg 3 Legend: (L) and (H) halle values outside specified reference range. I have personally reviewed the images and have reviewed and edited the reported findings. Electronically signed by Ben Dan MD 05/11/2018 13:30
== END 2018-05-11 01:50 ==
PROVIDERS: PCP Nurse Practitioner; Visit Provider Nurse Practitioner Family
DX: I48.91 Unspecified atrial fibrillation (principal); I50.1 Left ventricular failure, unspecified; I34.0 Nonrheumatic mitral (valve) insufficiency
CPT/HCPCS: 93306

== ENCOUNTER 2018-05-15 09:53 | Emergency (ER) | payer OTHER, SELFPAY ==
[2018-05-15] VITALS (15 sets, daily range): BP systolic 112–119; BP diastolic 71–78; PULSE 68–83; RESP 7–20; TEMP 36.8; O2SAT 95–99
--- NOTE | 2018-05-15 10:53 | ED.GENADUL_ITS ---
Discharge Plan Disposition Patient Disposition: HOME Condition: Stable Discharge Details Chief Complaint: Chest Pain Clinical Impression: Atrial fibrillation Primary Care Provider: Dinora Wilks ED Provider: Adelia Christiansen Home Meds and New Rx's Prescriptions: Continued spironolactone 25 mg tablet 12.5 mg PO DAILY Qty: 90 RF: 4 losartan 25 mg tablet 25 mg PO DAILY Qty: 90 RF: 4 Xarelto 20 MG tablet 20 mg PO DAILY RF: 0 Metoprolol Succinate 50 MG TAB.ER.24H 37.5 mg PO DAILY Qty: 90 RF: 4 No Action cyclobenzaprine 10 mg tablet 10 mg PO TID PRN (Reason: pain) Qty: 15 RF: 0 prednisone 20 mg tablet 60 mg PO DAILY Qty: 12 RF: 0 lidocaine [Lidoderm] 5 % adhesive patch,medicated 1 patch TP DAILY Qty: 15 RF: 0 Discharge Instructions Instructions: Atrial Fibrillation (ED) Additional Instructions: Please return immediately to the emergency department if you develop any new or worsening symptoms or become otherwise concerned. It is extremely important that you attend your scheduled appointment with your agriculture instructor this afternoon as planned. Referrals: Ben Dan MD [ NON-[facility] STAFF PHYSICIAN] - Dinora Wilks [Primary Care Provider] - Discharge Data Discharge Date/Time-TO BE ENTERED AT DEPARTURE: 05/15/18 12:07 Medical Decision Making Travis Olivas is a 52 y/o man with h/o paroxysmal afib presenting to the emergency department with palpitations since last night similar to prior episodes of afib, no associated symptoms or apparent inciting events. Pt has been taking eliquis as prescribed. On exam Pt is very well and non-toxic appearing, in atrial fibrillation on rhythm strip with rate 70s. Other vitals si gns also normal. Concern for paroxysmal atrial fibrillation, doubt metabolic/lyte abnormality or ACS. Exam/hx not c/w PE, acute emergent infectious process, acute aortic pathology. Plan for EKG, screening labs, telemetry. EKG okay. Pt symptoms, HR remain unchanged. Labs okay. No indication for emergent cardioversion at this time. I discussed Pt presentation and results with Dr. Dan of cardiology, who has existing appt with Pt this afternoon; he recommends no further intervention at this time and will see Pt as scheduled today. Lengthy discussion with Pt re: RTED precautions and importance of outpt f/u with Dr. Dan, PCP. Pt verbalizes understanding of plan and is amenable. Medical Records Medical records reviewed: Yes I reviewed the patient's medical records. Lab Data Lab results reviewed: Yes I reviewed the patient's lab results. Laboratory Tests Range/Units 05/15/18 05/15/18 05/15/18 10:27 10:27 10:27 WBC (4.4-10.8) k/cumm 6.50 RBC (4.50-6.00) m/cumm 5.08 Hgb (13.5-17.5) g/dL 14.3 Hct (40.0-50.0) % 42.0 MCV (80-95) fL 82.7 MCH (27.0-33.0) pg 28.1 MCHC (32.0-36.0) g/dL 34.0 RDW (11.8-14.1) % 13.4 Plt Count (130-400) x1000/uL 205 MPV (8.0-11.0) fL 10.2 Immature Gran % 0.2 Neutrophils % 57.4 Lymphocytes % 30.5 Monocytes % 8.0 Eosinophils % 3.4 Basophils % 0.5 Absolute Neutrophils (1.2-6.7) k/cumm 3.74 Absolute Lymphocytes (1.2-3.4) k/cumm 1.98 Absolute Monocytes (0.11-0.7) k/cumm 0.52 Absolute Eosinophils (0.0-0.7) k/cumm 0.22 Absolute Basophils (0.0-0.2) k/cumm 0.03 PT (9.3-11.0) sec INR (1.0-3.5) APTT (21.0-31.4) sec Sodium (136-145) mmol/L 141 Potassium (3.5-5.1) mmol/L 4.4 Chloride (98-107) mmol/L 103 Carbon Dioxide (21.0-32.0) mmol/L 31.0 Anion Gap (3-11) mmol/L 7.0 BUN (7-18) mg/dL 23 H Creatinine (0.70-1.30) mg/dL 1.06 Estimated GFR/1.73 m2 (mL/min/1.73m2) >= 60.00 Glucose (70-100) mg/dL 97 Calcium (8.5-10.1) mg/dL 9.1 Magnesium (1.8-2.4) mg/dL 1.8 Total Bilirubin (0.2-1.0) mg/dL 0.7 AST (15-37) U/L 33 ALT (12-78) U/L 103 H Alkaline Phosphatase (46-116) U/L 68 Troponin I (0.00-0.06) ng/mL < 0.02 Total Protein (6.4-8.2) g/dL 7.6 Albumin (3.4-5.0) g/dL 3.4 TSH (0.358-3.74) uIU/mL 2.00 Range/Units 05/15/18 10:27 WBC (4.4-10.8) k/cumm RBC (4.50-6.00) m/cumm Hgb (13.5-17.5) g/dL Hct (40.0-50.0) % MCV (80-95) fL MCH (27.0-33.0) pg MCHC (32.0-36.0) g/dL RDW (11.8-14.1) % Plt Count (130-400) x1000/uL MPV (8.0-11.0) fL Immature Gran % Neutrophils % Lymphocytes % Monocytes % Eosinophils % Basophils % Absolute Neutrophils (1.2-6.7) k/cumm Absolute Lymphocytes (1.2-3.4) k/cumm Absolute Monocytes (0.11-0.7) k/cumm Absolute Eosinophils (0.0-0.7) k/cumm Absolute Basophils (0.0-0.2) k/cumm PT (9.3-11.0) sec 11.1 H INR (1.0-3.5) 1.1 APTT (21.0-31.4) sec 25.2 Sodium (136-145) mmol/L Potassium (3.5-5.1) mmol/L Chloride (98-107) mmol/L Carbon Dioxide (21.0-32.0) mmol/L Anion Gap (3-11) mmol/L BUN (7-18) mg/dL Creatinine (0.70-1.30) mg/dL Estimated GFR/1.73 m2 (mL/min/1.73m2) Glucose (70-100) mg/dL Calcium (8.5-10.1) mg/dL Magnesium (1.8-2.4) mg/dL Total Bilirubin (0.2-1.0) mg/dL AST (15-37) U/L ALT (12-78) U/L Alkaline Phosphatase (46-116) U/L Troponin I (0.00-0.06) ng/mL Total Protein (6.4-8.2) g/dL Albumin (3.4-5.0) g/dL TSH (0.358-3.74) uIU/mL ECG Data Attestation: I personally reviewed and interpreted this ECG (s) as follows: Interpretation: EKG shows atrial fibrillation at 81, normal axis, no acute ischemic changes HPI General Mode of arrival: ambulatory . Date/Time Provider Initiated Documentation: 05/15/18 10:44 . Limitations to Documentation: no limitations . Information obtained by: patient, family, RN notes reviewed and old records reviewed . HPI Narrative: Travis Olivas is a 52 y/o man with h/o afib presenting to the emergency department with palpitations. Pt reports that he has been in afib twice in the past, beginning this year. Has been cardioverted out of afib on both occasions. Pt reports that he was at rest yesterday evening when he felt himself go into afib again. Has felt unchanged palpitations continuously since onset yesterday, and is currently experiencing them with monitor showing afib at rate in 70s. Contrary to triage note, Pt denies any chest pain or any other pain. No cough, SOB, fevers, n/v/d, n/t, weakness, or lightheadedness. Has not been drinking alcohol. No recreational drugs. No recent illness, no recent travel. Has been eating and drinking as usual. Related Data Home Medications Medication Instructions Recorded Confirmed Xarelto 20 mg PO DAILY tab-cap 12/26/17 05/22/18 losartan 25 mg tablet 25 mg PO DAILY #90 tab 04/04/18 05/22/18 spironolactone 25 mg tablet 12.5 mg PO DAILY #90 tab 04/04/18 05/22/18 cyclobenzaprine 10 mg PO TID PRN #15 tab 05/22/18 lidocaine [Lidoderm] 1 patch TP DAILY #15 each 05/22/18 prednisone 60 mg PO DAILY #12 tab 05/22/18 Previous Rx's Medication Instructions Recorded losartan 25 mg tablet 25 mg PO DAILY #90 tab 04/04/18 spironolactone 25 mg tablet 12.5 mg PO DAILY #90 tab 04/04/18 cyclobenzaprine 10 mg PO TID PRN #15 tab 05/22/18 lidocaine [Lidoderm] 1 patch TP DAILY #15 each 05/22/18 prednisone 60 mg PO DAILY #12 tab 05/22/18 Allergies Allergy/AdvReac Type Severity Reaction Status Date / Time doxycycline Allergy Intermediate Hives Unverified 05/22/18 12:08 amoxicillin Allergy Unknown Hives Unverified 05/22/18 12:08 General Stated Complaint: Chest Pain KYREE: 2 Review of Systems Review of Systems Constitutional: denies fevers Eyes: denies eye pain ENT: denies facial pain, dental pain, sore throat Cardiovascular: denies chest pain, edema, reports palpitations Respiratory: denies SOB, cough GI: denies abdominal pain, vomiting, diarrhea : denies flank pain MSK: denies back pain, neck pain, arthralgias, myalgias Skin: denies rash Neuro: denies headaches, lightheadedness, weakness PFSH Social History Smoking/Tobacco Use Status: Never Exam Narrative Exam Narrative: Constitutional: well and [id number], pleasant, conversing normally HENT: head atraumatic, normocephalic normal inspection, mucous membranes moist Eyes: conjunctiva normal, sclera normal, pupils 3mm b/l Neck: no stridor, normal ROM, trachea midline Chest: normal inspection Resp: normal work of breathing, LCTAB Cardio: normal rate, irregularly irregular rhythm, no murmur appreciated Back: normal inspection, no rash Skin: warm, dry, normal color, no rash Neuro: alert, not altered, grossly non-focal, normal tone Ext: no edema, no posterior calf TTP Psych: normal mood, normal affect, normal behavior Course Vital Signs Temperature 36.8 C 05/15/18 10:03 Pulse 79 05/15/18 10:03 Respiratory Rate 20 05/15/18 10:03 Blood Pressure 119/71 05/15/18 10:03 Pulse Oximetry 97 05/15/18 10:03 Temperature 36.8 C 05/15/18 10:03 Temperature Source Temporal Artery Scan 05/15/18 10:03 Pulse 79 05/15/18 10:03 Respiratory Rate 20 05/15/18 10:03 Respiratory Effort Non-Labored 05/15/18 10:03 Blood Pressure 119/71 05/15/18 10:03 Blood Pressure Position Sitting 05/15/18 10:03 Pulse Oximetry 97 05/15/18 10:03 Oxygen Delivery Method Room Air 05/15/18 10:03 Oxygen Flow Rate 0 05/15/18 10:03 Pain Level 1 05/15/18 10:03
[2018-05-15 11:00] LABS: Abs Immature Grans 0.01 k/cumm (0.0-0.09); Absolute Basophil Count 0.03 k/cumm (0.0-0.2); Absolute Eosinophil Count 0.22 k/cumm (0.0-0.7); Absolute Lymphocyte Count 1.98 k/cumm (1.2-3.4); Absolute Monocyte Count 0.52 k/cumm (0.11-0.7); Absolute Neutrophil Count 3.74 k/cumm (1.2-6.7); Basophils % 0.5; Eosinophils % 3.4; HGB 14.3 g/dL (13.5-17.5); Immature Grans % 0.2; Lymphocytes % 30.5; Mean Corpuscular Hemoglobin 28.1 pg (27.0-33.0); Mean Corpuscular Volume 82.7 fL (80-95); Mean Platelet Volume 10.2 fL (8.0-11.0); Neutrophils % 57.4; Platelet Count 205 x1000/uL (130-400); RBC 5.08 m/cumm (4.50-6.00); RBC Distribution Width 13.4 % (11.8-14.1)
[2018-05-15 11:15] LABS: INR 1.1 (1.0-3.5); PTT Activated 25.2 sec (21.0-31.4); Prothrombin Time 11.1 sec (9.3-11.0)
[2018-05-15 11:17] LABS: ALT 103 U/L (12-78); AST 33 U/L (15-37); Albumin 3.4 g/dL (3.4-5.0); Alkaline Phosphatase 68 U/L (46-116); BUN 23 mg/dL (7-18); Bilirubin, Total 0.7 mg/dL (0.2-1.0); CREATININE 1.06 mg/dL (0.70-1.30); Calcium 9.1 mg/dL (8.5-10.1); Chloride 103 mmol/L (98-107); Glucose 97 mg/dL (70-100); Potassium 4.4 mmol/L (3.5-5.1); Sodium 141 mmol/L (136-145); Total Protein 7.6 g/dL (6.4-8.2); Troponin I < 0.02 ng/mL (0.00-0.06)
[2018-05-15 11:20] LABS: Magnesium 1.8 mg/dL (1.8-2.4)
== END 2018-05-15 12:07 | disposition home or self-care (01) ==
PROVIDERS: Student in an Organized Health Care Education/Training Program; Emergency Provider Student in an Organized Health Care Education/Training Program; PCP Nurse Practitioner
DX: I48.91 Unspecified atrial fibrillation (principal); Z79.01 Long term (current) use of anticoagulants
CPT/HCPCS: 36415; 80053; 93005; 99284; 83735; 84443; 84484; 85025; 85610; 85730; 93010

== ENCOUNTER 2018-05-22 12:00 | Emergency (ER) | payer OTHER, SELFPAY ==
[2018-05-22 12:06] VITALS: BP 142/72; PULSE 98; RESP 16; TEMP 37; O2SAT 98
[2018-05-22] MEDS: Ketorolac 30 MG/ML VIAL IM (12:51)
[2018-05-22] MEDS: predniSONE 20 MG TAB 60 MG PO (12:52)
[2018-05-22] MEDS: Cyclobenzaprine 10 MG TAB PO (12:58)
[2018-05-22] MEDS: Lidocaine 5% Patch 1 PATCH TP (12:58)
--- NOTE | 2018-05-23 16:02 | W.ED.GENAD ---
Discharge Plan Disposition Patient Disposition: HOME Condition: Stable Discharge Details Chief Complaint: Nk/Back Pain Clinical Impression: Back pain Reason For Visit: INJURED BACK Primary Care Provider: Dinora Wilks ED Provider: Adelia Christiansen Home Meds and New Rx's Prescriptions: New cyclobenzaprine 10 mg tablet 10 mg PO TID PRN (Reason: pain) Qty: 15 RF: 0 prednisone 20 mg tablet 60 mg PO DAILY Qty: 12 RF: 0 lidocaine [Lidoderm] 5 % adhesive patch,medicated 1 patch TP DAILY Qty: 15 RF: 0 Continued spironolactone 25 mg tablet 12.5 mg PO DAILY Qty: 90 RF: 4 losartan 25 mg tablet 25 mg PO DAILY Qty: 90 RF: 4 Xarelto 20 MG tablet 20 mg PO DAILY RF: 0 Metoprolol Succinate 50 MG TAB.ER.24H 37.5 mg PO DAILY Qty: 90 RF: 4 Discharge Instructions Instructions: Prednisone (By mouth), Cyclobenzaprine (By mouth), Lidocaine Patch (On the skin), Low Back Strain (ED), Back Pain (ED) Additional Instructions: Please return immediately to the emergency department if you develop any new or worsening symptoms or if you become otherwise concerned. It is extremely important that you make an appointment to be seen by your primary care doctor within the next 1-2 weeks in follow-up for this visit. 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 On exam Pt is well and non-toxic appearing. No neuro deficit. TTP over right lumbar paraspinals that reproduces pain. Concern for muscle strain vs disc herniation. Exam/hx not c/w cauda equina syndrome, epidural abscess/hematoma, other cord compression, vertebral fx, acute aortic pathology, infection, pathology resulting from afib. Plan for steroids, flexeril, lidoderm patch. Pt driving himself, will give one flexeril for home use in addition to RX, toradol here. Pt was also seen here recently for afib, reports that he saw cardiology and has further f/u for that scheduled. I had a lengthy discussion with the Pt re: RTED precautions and importance of outpt f/u with PCP. Pt verbalizes understanding of the plan and is amenable. Medical Records Medical records reviewed: Yes I reviewed the patient's medical records. HPI General Mode of arrival: ambulatory. Date/Time Provider Initiated Documentation: 05/22/18 12:44. Limitations to Documentation: no limitations. Information obtained by: patient, RN notes reviewed and old records reviewed. HPI Narrative: Travis Olivas is a 52 y/o man with h/o afib, sleep apnea presenting to the emergency department with back pain. Pt reports that he was at work this am, pulling on a piece of heavy equipment with a twisting motion when he had sudden onset in his right lower back. Has had similar pain in the past, but not as severe. Pt reports pain as stabbing, radiates from lower back into right buttock and thigh. Worse with movement, but bas been able to walk since injury. He has urinated without issue since onset of pain. No numbness, tingling of the legs or saddle region. No weakness of the legs. Pt reports that he was previously in his usual state of health. Denies other pain, fevers, lightheadedness, n/v/d/c. Has not taken any thing for the pain. Related Data Home Medications Medication Instructions Recorded Confirmed Xarelto 20 mg PO DAILY tab-cap 12/26/17 05/22/18 losartan 25 mg tablet 25 mg PO DAILY #90 tab 04/04/18 05/22/18 spironolactone 25 mg tablet 12.5 mg PO DAILY #90 tab 04/04/18 05/22/18 cyclobenzaprine 10 mg PO TID PRN #15 tab 05/22/18 lidocaine [Lidoderm] 1 patch TP DAILY #15 each 05/22/18 prednisone 60 mg PO DAILY #12 tab 05/22/18 Previous Rx's Medication Instructions Recorded losartan 25 mg tablet 25 mg PO DAILY #90 tab 04/04/18 spironolactone 25 mg tablet 12.5 mg PO DAILY #90 tab 04/04/18 cyclobenzaprine 10 mg PO TID PRN #15 tab 01/07/19 lidocaine [Lidoderm] 1 patch TP DAILY #15 each 05/22/18 prednisone 60 mg PO DAILY #12 tab 05/22/18 Allergies Allergy/AdvReac Type Severity Reaction Status Date / Time doxycycline Allergy Intermediate Hives Unverified 05/22/18 12:08 amoxicillin Allergy Unknown Hives Unverified 05/22/18 12:08 General Stated Complaint: Nk/Back Pain KYREE: 4 Review of Systems Review of Systems Constitutional: denies fevers Eyes: denies eye pain ENT: denies facial pain, dental pain, sore throat Cardiovascular: denies chest pain, edema Respiratory: denies SOB, cough GI: denies abdominal pain, vomiting, diarrhea : denies flank pain MSK: denies neck pain, arthralgias, myalgias, reports back pain Skin: denies rash Neuro: denies headaches, numbness, weakness, lightheadedness PFSH Medical History Atrial fibrillation (Chronic) Sleep apnea (Chronic) Epicondylitis (Resolved) Social History current occupation: [employer] Smoking/Tobacco Use Status: Never alcohol intake: former year quit: 2018 Exam Narrative Exam Narrative: Constitutional: well and [id number], pleasant, conversing normally, appears uncomfortable with movement HENT: head atraumatic, normocephalic normal inspection, mucous membranes moist Eyes: conjunctiva normal, sclera normal, pupils 3mm b/l Neck: no stridor, normal ROM, trachea midline Resp: normal work of breathing, LCTAB Cardio: normal rate, irregularly irregular rhythm, no murmur appreciated GI: abdomen soft, non-tender, non-distended Back: normal inspection, no rash, right lumbar paraspinals TTP, no vertebral TTP of the thoracic or lumbar spine, left paraspinals NTTP. Skin: warm, dry, normal color, no rash Neuro: alert, not altered, top former grossly intact, motor 5/5 b/l LEs, walking slowly but otherwise normally, normal tone, sensation intact and symmetric b/l LEs Ext: no edema Psych: normal mood, normal affect, normal behavior Course Vital Signs Temperature 37 C 05/22/18 12:06 Pulse 98 H 05/22/18 12:06 Respiratory Rate 16 05/22/18 12:06 Blood Pressure 142/72 H 05/22/18 12:06 Pulse Oximetry 98 05/22/18 12:06 Temperature 37 C 05/22/18 12:06 Pulse 98 H 05/22/18 12:06 Respiratory Rate 16 05/22/18 12:06 Respiratory Effort Non-Labored 05/22/18 12:06 Blood Pressure 142/72 H 05/22/18 12:06 Blood Pressure Position Standing 05/22/18 12:06 Pulse Oximetry 98 05/22/18 12:06 Oxygen Delivery Method Room Air 05/22/18 12:06 Oxygen Flow Rate 0 05/22/18 12:06 Pain Level 9 05/22/18 12:09
--- NOTE | 2018-05-30 10:52 | ED.GENADUL_ITS ---
Discharge Plan Disposition Patient Disposition: HOME Condition: Stable Discharge Details Chief Complaint: Nk/Back Pain Clinical Impression: Back pain Reason For Visit: INJURED BACK Primary Care Provider: Dinora Wilks ED Provider: Adelia Christiansen Home Meds and New Rx's Prescriptions: New cyclobenzaprine 10 mg tablet 10 mg PO TID PRN (Reason: pain) Qty: 15 RF: 0 prednisone 20 mg tablet 60 mg PO DAILY Qty: 12 RF: 0 lidocaine [Lidoderm] 5 % adhesive patch,medicated 1 patch TP DAILY Qty: 15 RF: 0 Continued spironolactone 25 mg tablet 12.5 mg PO DAILY Qty: 90 RF: 4 losartan 25 mg tablet 25 mg PO DAILY Qty: 90 RF: 4 Xarelto 20 MG tablet 20 mg PO DAILY RF: 0 Metoprolol Succinate 50 MG TAB.ER.24H 37.5 mg PO DAILY Qty: 90 RF: 4 Discharge Instructions Instructions: Prednisone (By mouth), Cyclobenzaprine (By mouth), Lidocaine Patch (On the skin), Low Back Strain (ED), Back Pain (ED) Additional Instructions: Please return immediately to the emergency department if you develop any new or worsening symptoms or if you become otherwise concerned. It is extremely important that you make an appointment to be seen by your primary care doctor within the next 1-2 weeks in follow-up for this visit. 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 On exam Pt is well and non-toxic appearing. No neuro deficit. TTP over right lumbar paraspinals that reproduces pain. Concern for muscle strain vs disc herniation. Exam/hx not c/w cauda equina syndrome, epidural abscess/hematoma, other cord compression, vertebral fx, acute aortic pathology, infection, pathology resulting from afib. Plan for steroids, flexeril, lidoderm patch. Pt driving himself, will give one flexeril for home use in addition to RX, toradol here. Pt was also seen here recently for afib, reports that he saw cardiology and has further f/u for that scheduled. I had a lengthy discussion with the Pt re: RTED precautions and importance of outpt f/u with PCP. Pt verbalizes understanding of the plan and is amenable. Medical Records Medical records reviewed: Yes I reviewed the patient's medical records. HPI General Mode of arrival: ambulatory . Date/Time Provider Initiated Documentation: 05/22/18 12:44 . Limitations to Documentation: no limitations . Information obtained by: patient, RN notes reviewed and old records reviewed . HPI Narrative: Travis Olivas is a 52 y/o man with h/o afib, sleep apnea presenting to the emergency department with back pain. Pt reports that he was at work this am, pulling on a piece of heavy equipment with a twisting motion when he had sudden onset in his right lower back. Has had similar pain in the past, but not as severe. Pt reports pain as stabbing, radiates from lower back into right buttock and thigh. Worse with movement, but bas been able to walk since injury. He has urinated without issue since onset of pain. No numbness, tingling of the legs or saddle region. No weakness of the legs. Pt reports that he was previously in his usual state of health. Denies other pain, fevers, lightheadedness, n/v/d/c. Has not taken any thing for the pain. Related Data Home Medications Medication Instructions Recorded Confirmed Xarelto 20 mg PO DAILY tab-cap 12/26/17 05/22/18 losartan 25 mg tablet 25 mg PO DAILY #90 tab 04/04/18 05/22/18 spironolactone 25 mg tablet 12.5 mg PO DAILY #90 tab 04/04/18 05/22/18 cyclobenzaprine 10 mg PO TID PRN #15 tab 05/22/18 lidocaine [Lidoderm] 1 patch TP DAILY #15 each 05/22/18 prednisone 60 mg PO DAILY #12 tab 05/22/18 Previous Rx's Medication Instructions Recorded losartan 25 mg tablet 25 mg PO DAILY #90 tab 04/04/18 spironolactone 25 mg tablet 12.5 mg PO DAILY #90 tab 04/04/18 cyclobenzaprine 10 mg PO TID PRN #15 tab 01/07/19 lidocaine [Lidoderm] 1 patch TP DAILY #15 each 05/22/18 prednisone 60 mg PO DAILY #12 tab 05/22/18 Allergies Allergy/AdvReac Type Severity Reaction Status Date / Time doxycycline Allergy Intermediate Hives Unverified 05/22/18 12:08 amoxicillin Allergy Unknown Hives Unverified 05/22/18 12:08 General Stated Complaint: Nk/Back Pain KYREE: 4 Review of Systems Review of Systems Constitutional: denies fevers Eyes: denies eye pain ENT: denies facial pain, dental pain, sore throat Cardiovascular: denies chest pain, edema Respiratory: denies SOB, cough GI: denies abdominal pain, vomiting, diarrhea : denies flank pain MSK: denies neck pain, arthralgias, myalgias, reports back pain Skin: denies rash Neuro: denies headaches, numbness, weakness, lightheadedness PFSH Medical History Atrial fibrillation (Chronic) Sleep apnea (Chronic) Epicondylitis (Resolved) Social History current occupation: [employer] Smoking/Tobacco Use Status: Never alcohol intake: former year quit: 2018 Exam Narrative Exam Narrative: Constitutional: well and [id number], pleasant, conversing normally, appears uncomfortable with movement HENT: head atraumatic, normocephalic normal inspection, mucous membranes moist Eyes: conjunctiva normal, sclera normal, pupils 3mm b/l Neck: no stridor, normal ROM, trachea midline Resp: normal work of breathing, LCTAB Cardio: normal rate, irregularly irregular rhythm, no murmur appreciated GI: abdomen soft, non-tender, non-distended Back: normal inspection, no rash, right lumbar paraspinals TTP, no vertebral TTP of the thoracic or lumbar spine, left paraspinals NTTP. 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, motor 5/5 b/l LEs, walking slowly but otherwise normally, normal tone, sensation intact and symmetric b/l LEs Ext: no edema Psych: normal mood, normal affect, normal behavior Course Vital Signs Temperature 37 C 05/22/18 12:06 Pulse 98 H 05/22/18 12:06 Respiratory Rate 16 05/22/18 12:06 Blood Pressure 142/72 H 05/22/18 12:06 Pulse Oximetry 98 05/22/18 12:06 Temperature 37 C 05/22/18 12:06 Pulse 98 H 05/22/18 12:06 Respiratory Rate 16 05/22/18 12:06 Respiratory Effort Non-Labored 05/22/18 12:06 Blood Pressure 142/72 H 05/22/18 12:06 Blood Pressure Position Standing 05/22/18 12:06 Pulse Oximetry 98 05/22/18 12:06 Oxygen Delivery Method Room Air 05/22/18 12:06 Oxygen Flow Rate 0 05/22/18 12:06 Pain Level 9 05/22/18 12:09
== END 2018-05-22 13:02 | disposition home or self-care (01) ==
LOC: ER 12:59
PROVIDERS: Emergency Provider Student in an Organized Health Care Education/Training Program; PCP Nurse Practitioner
DX: M54.5 Low back pain (principal); X50.1XXA Overexertion from prolonged static or awkward postures, initial encounter
CPT/HCPCS: 96372; 99284; J1885; J7512

== ENCOUNTER 2018-07-17 16:08 | Outpatient (REF) | payer BC, SELFPAY ==
[2018-07-17 19:31] LABS: ALT 38 U/L (12-78); AST 19 U/L (15-37); Albumin 3.8 g/dL (3.4-5.0); Alkaline Phosphatase 67 U/L (46-116); Bilirubin, Total 0.3 mg/dL (0.2-1.0); ESR 16 MM/HR (0-15); Potassium 4.3 mmol/L (3.5-5.1); Total Protein 7.5 g/dL (6.4-8.2)
[2018-07-17 20:07] LABS: Vitamin B12 503 pg/mL (193-986)
[2018-07-19 11:44] LABS: Lyme Ab w Rflx to Lyme Confirm Negative
== END 2018-07-17 16:28 ==
LOC: NCHCN 16:08
PROVIDERS: PCP Nurse Practitioner; Visit Provider Nurse Practitioner
DX: R53.83 Other fatigue (principal); M25.50 Pain in unspecified joint
CPT/HCPCS: 80076; 82306; 85652; 82607; 84132; 86618

== ENCOUNTER 2018-08-08 07:11 | Emergency (ER) | payer BC, SELFPAY ==
[2018-08-08] VITALS (19 sets, daily range): BP systolic 111–134; BP diastolic 75–88; PULSE 54–80; RESP 10–23; TEMP 36.5; O2SAT 94–99
--- NOTE | 2018-08-08 07:31 | W.ED.GENAD ---
Discharge Plan Disposition Patient Disposition: HOME Condition: Improving Discharge Details Chief Complaint: Chest Pain Clinical Impression: Atypical chest pain Primary Care Provider: Dinora Wilks ED Provider: Shaista Wild Home Meds and New Rx's Prescriptions: Continued spironolactone 25 mg tablet 12.5 mg PO DAILY Qty: 90 RF: 4 losartan 25 mg tablet 25 mg PO DAILY Qty: 90 RF: 4 Xarelto 20 MG tablet 20 mg PO DAILY RF: 0 Metoprolol Succinate 50 MG TAB.ER.24H 37.5 mg PO DAILY Qty: 90 RF: 4 acetaminophen [Tylenol Extra Strength] 500 mg Tablet RF: 0 sertraline 25 mg Tablet 25 mg PO DAILY RF: 0 pantoprazole 40 mg Tablet,Delayed Release (Dr/Ec) 40 mg PO DAILY RF: 0 multivitamin Tablet,Chewable 2 tab PO DAILY RF: 0 Discharge Instructions Instructions: Chest Pain (ED) Additional Instructions: Drink plenty of fluids and get plenty of rest. Take your regular medications as directed. Follow-up with your scheduled ablation on at [facility]. Follow up with Dr. Dan in the office in the next 1-2 weeks. Return immediately to the emergency department any worsening or new concerning symptoms. Discharge Data Discharge Physician: Shaista Wild Medical Decision Making <Matias Santillan MD - Last Filed: 08/08/18 07:34> 52-year-old male presents from home with his . He complains of the onset at 05 100 of substernal chest pressure that is intermittent last minutes and then recurs on its own. No provoking or ameliorating factors. He has a history of clinically silent A. fib for which she is on Xarelto and a beta-berenice. He scheduled for ablation with Dr. Sampson at the [facility] this coming . He was recently started on Protonix. He has normal vital signs, is in rate controlled A. fib. Differential diagnosis includes acute coronary syndrome, GERD, atypical chest pain. IV placed, labs obtained, patient referred for chest x-ray, EKG, laboratory. As he presented just prior to change of shift, please see Dr. Shaista Wild's note regarding details of the patient's diagnostic findings and disposition. <Shaista Wild DO - Last Filed: 08/08/18 13:50> Please see Dr. Santillan's note for initial presentation, exam and plan. Patient is a 52-year-old male with a history of atrial fibrillation and cardiomyopathy on losartan, metoprolol, spironolactone, Xarelto who presents with substernal sharp chest pain that started at 5 AM this morning. He states the pain is been intermittent, substernal, without radiation and occurring every 5-7 minutes initially, and now every 15-17 minutes. He denies any aggravating or alleviating factors. He denies fever, nausea, vomiting, shortness of breath or dizziness. His last stress test was December 2017 and normal. He does also admit to occasional cough with white sputum over the past few days. He states this was preceded by sore throat. He does admit to intermittent chest congestion. Vitals within normal limits on arrival. EKG notes a rate of 68, atrial fibrillation, no acute ST findings. Plan upon endorsement per Dr. Santillan was for plan for second troponin and discharge home if negative. Labs reviewed and are unremarkable. Chest x-ray negative. Upon my evaluation, patient states his pain is currently gone. He states it occurs every 15-17 minutes. Will give Pepcid and a GI cocktail and reassess. 1230 --second troponin negative. 1300 --Case discussed with Dr. Dan -reassured with normal stress test December 2017 and patient history and negative workup that appears appropriate for discharge to home. For further reassurance, recommends a third troponin. Will follow up with patient in the office after his ablation. Patient is refusing to stay for a third troponin. Patient is denying any pain at this time after pepcid and GI cocktail. Patient is requesting to go home. The risks of and disability due to a cardiac etiology were explained to patient and he fully understands. He demonstrates capacity to make decisions. He is instructed to call Dr. Sampson's office to inform him of his visit to the ER today. He is instructed return immediately to the emergency department any worsening or new concerning symptoms. Medical Records Medical records reviewed: Yes I reviewed the patient's medical records. Imaging Data Radiologic Study: Radiologist's impression: PA AND LATERAL CHEST: The heart is mildly enlarged. The lungs are clear and well expanded. No pleural effusion is seen. CONCLUSION: Mild cardiomegaly. The examination is otherwise unremarkable. Lab Data Lab results reviewed: Yes I reviewed the patient's lab results. Laboratory Tests Range/Units 08/08/18 08/08/18 08/08/18 07:21 07:21 07:21 WBC (4.4-10.8) k/cumm 7.14 RBC (4.50-6.00) m/cumm 5.02 Hgb (13.5-17.5) g/dL 13.8 Hct (40.0-50.0) % 41.2 MCV (80-95) fL 82.1 MCH (27.0-33.0) pg 27.5 MCHC (32.0-36.0) g/dL 33.5 RDW (11.8-14.1) % 13.5 Plt Count (130-400) x1000/uL 206 MPV (8.0-11.0) fL 10.2 Immature Gran % 0.1 Neutrophils % 61.2 Lymphocytes % 23.9 Monocytes % 9.9 Eosinophils % 4.3 Basophils % 0.6 Absolute Neutrophils (1.2-6.7) k/cumm 4.36 Absolute Lymphocytes (1.2-3.4) k/cumm 1.71 Absolute Monocytes (0.11-0.7) k/cumm 0.71 H Absolute Eosinophils (0.0-0.7) k/cumm 0.31 Absolute Basophils (0.0-0.2) k/cumm 0.04 PT (9.3-11.0) sec 11.0 INR (0.9-1.1) 1.1 APTT (21.0-31.4) sec 25.8 Sodium (136-145) mmol/L 141 Potassium (3.5-5.1) mmol/L 4.2 Chloride (98-107) mmol/L 103 Carbon Dioxide (21.0-32.0) mmol/L 32.3 H Anion Gap (3-11) mmol/L 5.7 BUN (7-18) mg/dL 20 H Creatinine (0.70-1.30) mg/dL 1.08 Estimated GFR/1.73 m2 (mL/min/1.73m2) >= 60.00 Glucose (70-100) mg/dL 99 Calcium (8.5-10.1) mg/dL 9.0 Magnesium (1.8-2.4) mg/dL 1.8 Total Bilirubin (0.2-1.0) mg/dL 0.5 AST (15-37) U/L 19 ALT (12-78) U/L 41 Alkaline Phosphatase (46-116) U/L 70 Troponin I (0.00-0.06) ng/mL < 0.02 Total Protein (6.4-8.2) g/dL 7.8 Albumin (3.4-5.0) g/dL 3.6 Range/Units 08/08/18 11:40 WBC (4.4-10.8) k/cumm RBC (4.50-6.00) m/cumm Hgb (13.5-17.5) g/dL Hct (40.0-50.0) % MCV (80-95) fL MCH (27.0-33.0) pg MCHC (32.0-36.0) g/dL RDW (11.8-14.1) % Plt Count (130-400) x1000/uL MPV (8.0-11.0) fL Immature Gran % Neutrophils % Lymphocytes % Monocytes % Eosinophils % Basophils % Absolute Neutrophils (1.2-6.7) k/cumm Absolute Lymphocytes (1.2-3.4) k/cumm Absolute Monocytes (0.11-0.7) k/cumm Absolute Eosinophils (0.0-0.7) k/cumm Absolute Basophils (0.0-0.2) k/cumm PT (9.3-11.0) sec INR (0.9-1.1) APTT (21.0-31.4) sec Sodium (136-145) mmol/L Potassium (3.5-5.1) mmol/L Chloride (98-107) mmol/L Carbon Dioxide (21.0-32.0) mmol/L Anion Gap (3-11) mmol/L BUN (7-18) mg/dL Creatinine (0.70-1.30) mg/dL Estimated GFR/1.73 m2 (mL/min/1.73m2) Glucose (70-100) mg/dL Calcium (8.5-10.1) mg/dL Magnesium (1.8-2.4) mg/dL Total Bilirubin (0.2-1.0) mg/dL AST (15-37) U/L ALT (12-78) U/L Alkaline Phosphatase (46-116) U/L Troponin I (0.00-0.06) ng/mL < 0.02 Total Protein (6.4-8.2) g/dL Albumin (3.4-5.0) g/dL ECG Data Attestation: I personally reviewed and interpreted this ECG (s) as follows: Interpretation: Rate of 68, atrial fibrillation, no acute ST elevation or depression. QTc 410. QRS 106. HPI <Matias Santillan MD - Last Filed: 08/08/18 07:34> General Mode of arrival: ambulatory. Date/Time Provider Initiated Documentation: 08/08/18 07:12. Limitations to Documentation: no limitations. Information obtained by: patient and family. History of Present Illness 52 year old M presents to the emergency department with the chief complaint of Chest pressure at 0500, described as moderate, Quality is described as dull and constant, and is localized to the chest. Patient reports no radiation. Patient started experiencing this hour(s) and it has been intermittent. No relieving factors improve symptom(s), No exacerbating factors reported . Patient notes no other symptoms.; denies fever/chills and nausea/vomiting. Patient did receive the following treatments prior to arrival, none Related Data Home Medications Medication Instructions Recorded Confirmed Xarelto 20 mg PO DAILY tab-cap 12/26/17 08/08/18 losartan 25 mg tablet 25 mg PO DAILY #90 tab 04/04/18 08/08/18 spironolactone 25 mg tablet 12.5 mg PO DAILY #90 tab 04/04/18 08/08/18 acetaminophen [Tylenol Extra 08/08/18 Strength] multivitamin 2 tab PO DAILY 08/08/18 08/08/18 pantoprazole 40 mg PO DAILY 08/08/18 sertraline 25 mg PO DAILY 08/08/18 08/08/18 Previous Rx's Medication Instructions Recorded losartan 25 mg tablet 25 mg PO DAILY #90 tab 04/04/18 spironolactone 25 mg tablet 12.5 mg PO DAILY #90 tab 04/04/18 Allergies Allergy/AdvReac Type Severity Reaction Status Date / Time doxycycline Allergy Intermediate Hives Unverified 05/22/18 12:08 amoxicillin Allergy Unknown Hives Unverified 05/22/18 12:08 General Stated Complaint: Chest Pain KYREE: 2 Review of Systems <Matias Santillan MD - Last Filed: 08/08/18 07:34> Review of Systems Recently started on Protonix. Scheduled for ablation at [facility] on . 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 Pleasant, well groomed, interactive. HEAD: Normocephalic, atraumatic ENT: Mucous membranes moist, oropharynx unremarkable, External ear exam unremarkable EYES: PERRL, EOMI NECK: Full ROM, no RICHIE, no menigismus CHEST/RESP: Nontender, clear to auscultation bilateral, no wheeze/rhonchi/rales CARDIOVASCULAR: Irregularly irregular, no murmur, rub maddison. 2+ Rad pulse bilateral ABDOMEN: Soft, nontender, no mass. +Bowel sounds EXT: Full ROM, no edema, no rash Neuro: Grossly normal neurologic exam, conversant, interactive. Psych: Speech fluent, thoughts congruent, affect normal Course <Matias Santillan MD - Last Filed: 08/08/18 07:34> Vital Signs Temperature 36.5 C 08/08/18 07:18 Pulse 75 08/08/18 07:18 Respiratory Rate 18 08/08/18 07:18 Blood Pressure 132/78 08/08/18 07:18 Pulse Oximetry 97 08/08/18 07:18 Temperature 36.5 C 08/08/18 07:18 Temperature Source Temporal Artery Scan 08/08/18 07:18 Pulse 75 08/08/18 07:18 Respiratory Rate 18 08/08/18 07:18 Respiratory Effort Non-Labored 08/08/18 07:20 Blood Pressure 132/78 08/08/18 07:18 Blood Pressure Position Supine 08/08/18 07:18 Pulse Oximetry 97 08/08/18 07:18 Oxygen Delivery Method Room Air 08/08/18 07:18 Oxygen Flow Rate 0 08/08/18 07:18 Pain Level 4 08/08/18 07:18 Sign Out <Matias Santillan MD - Last Filed: 08/08/18 07:34> Sign Out Data: Sign Out Comment: FOllowup labs, XR report Last updated by Matias Santillan MD at 08/08/18 07:46
--- NOTE | 2018-08-08 07:45 | DI.RAD_ITS ---
SYMPTOM/DIAGNOSIS: CHEST PRESSURE PA AND LATERAL CHEST: The heart is mildly enlarged. The lungs are clear and well expanded. No pleural effusion is seen. CONCLUSION: Mild cardiomegaly. The examination is otherwise unremarkable.
[2018-08-08 07:53] LABS: Abs Immature Grans 0.01 k/cumm (0.0-0.09); Absolute Basophil Count 0.04 k/cumm (0.0-0.2); Absolute Eosinophil Count 0.31 k/cumm (0.0-0.7); Absolute Lymphocyte Count 1.71 k/cumm (1.2-3.4); Absolute Monocyte Count 0.71 k/cumm (0.11-0.7); Absolute Neutrophil Count 4.36 k/cumm (1.2-6.7); Basophils % 0.6; Eosinophils % 4.3; HCT 41.2 % (40.0-50.0); HGB 13.8 g/dL (13.5-17.5); Immature Grans % 0.1; Lymphocytes % 23.9; Mean Corp. HGB Concentration 33.5 g/dL (32.0-36.0); Mean Corpuscular Hemoglobin 27.5 pg (27.0-33.0); Mean Corpuscular Volume 82.1 fL (80-95); Mean Platelet Volume 10.2 fL (8.0-11.0); Monocytes % 9.9; Neutrophils % 61.2; Platelet Count 206 x1000/uL (130-400); RBC 5.02 m/cumm (4.50-6.00); RBC Distribution Width 13.5 % (11.8-14.1); White Blood Cell Count 7.14 k/cumm (4.4-10.8)
[2018-08-08 08:14] LABS: INR 1.1 (0.9-1.1); PTT Activated 25.8 sec (21.0-31.4)
[2018-08-08 08:17] LABS: ALT 41 U/L (12-78); AST 19 U/L (15-37); Albumin 3.6 g/dL (3.4-5.0); Alkaline Phosphatase 70 U/L (46-116); Anion Gap 5.7 mmol/L (3-11); BUN 20 mg/dL (7-18); Bilirubin, Total 0.5 mg/dL (0.2-1.0); CO2 32.3 mmol/L (21.0-32.0); CREATININE 1.08 mg/dL (0.70-1.30); Chloride 103 mmol/L (98-107); Glucose 99 mg/dL (70-100); Magnesium 1.8 mg/dL (1.8-2.4); Potassium 4.2 mmol/L (3.5-5.1); Sodium 141 mmol/L (136-145); Total Protein 7.8 g/dL (6.4-8.2); Troponin I < 0.02 ng/mL (0.00-0.06)
[2018-08-08] MEDS: Famotidine 20 MG/2 ML VIAL (10:22)
[2018-08-08 12:18] LABS: Troponin I < 0.02 ng/mL (0.00-0.06)
== END 2018-08-08 13:52 | disposition home or self-care (01) ==
PROVIDERS: Emergency Medicine; Emergency Provider Physician Assistant; PCP Nurse Practitioner
DX: R07.89 Other chest pain (principal); I51.7 Cardiomegaly; I48.91 Unspecified atrial fibrillation; Z79.01 Long term (current) use of anticoagulants
CPT/HCPCS: 36415; 80053; 93005; 96374; 99285; 71046; 83735; 84484; 85025; 85610; 85730; 93010

== ENCOUNTER 2018-11-08 08:50 | Outpatient (CLI) | payer BC, SELFPAY ==
--- NOTE | 2018-11-08 09:43 | DI.MRI_ITS ---
SYMPTOM/DIAGNOSIS: BILAT SCIATICA PAIN, M79.604, PAIN RT LEG, M79.605, PAIN LT LEG, M54.5, LOW BACK PAIN, OTHER CHRONIC PAIN, G89.29 LUMBOSACRAL SPINE MRI: MR examination of the lumbosacral spine was performed according to the usual protocol. No significant bony signal abnormality is seen. The conus medullaris appears intact. There is moderate facet hypertrophy at L 3-4, L 4-5 and L 5-S 1. There is multi level disc bulge involving L 3-4, L 4-5 and L 5-S 1. There may be a minimal left lateral disc herniation at L 3-4. No other significant disc herniation is seen. Neural foramina appear well maintained throughout. There is moderate central canal spinal stenosis at L 4-5. There is mild central canal spinal stenosis at L 3-4. CONCLUSION: Mild central canal spinal stenosis and slight left lateral disc herniation at L 3-4. Moderate central canal spinal stenosis at L 4-5.
== END 2018-11-08 09:10 ==
PROVIDERS: PCP Nurse Practitioner; Visit Provider Psychiatry & Neurology Neurology
DX: G89.29 Other chronic pain (principal); M54.41 Lumbago with sciatica, right side; M79.604 Pain in right leg; M79.605 Pain in left leg; M54.42 Lumbago with sciatica, left side; M51.16 Intervertebral disc disorders with radiculopathy, lumbar region; M48.061 Spinal stenosis, lumbar region without neurogenic claudication
CPT/HCPCS: 72148

== ENCOUNTER 2018-11-29 11:39 | Outpatient (REF) | payer BC, SELFPAY ==
[2018-11-29 21:06] LABS: ESR 23 MM/HR (1-20)
[2018-12-01 10:01] LABS: Rheumatoid Factor <8 IU/mL (<12.5)
[2018-12-01 15:42] LABS: ANA Interpretation Negative (NEGAT)
== END 2018-11-29 11:59 ==
LOC: NCHCN 11:39
PROVIDERS: PCP Nurse Practitioner; Visit Provider Nurse Practitioner
DX: M25.50 Pain in unspecified joint (principal)
CPT/HCPCS: 85652; 86038; 86431

== ENCOUNTER 2019-03-01 07:09 | Day surgery (SDC) | payer BC, SELFPAY ==
[2019-03-01 07:23] VITALS: BP 114/73; PULSE 68; RESP 16; TEMP 36.7; O2SAT 68
--- NOTE | 2019-03-01 07:29 | SUR.PHASEI ---
03/01/19 0725 Pt held xeralto for 48 hrs states my doctor said I [address] Lynch made aware. p
[2019-03-01] MEDS: Lactated Ringers 1,000 ML 80 ML IV (07:55)
--- NOTE | 2019-03-01 09:39 | W.PM.DSUDISC ---
Discharge Plan Disposition Patient Disposition: HOME Condition: Good Discharge Details Reason For Visit: colonoscopy Attending Provider: Erlinda Lynch Primary Care Provider: Dinora Wilks Home Meds and New Rx's Prescriptions: Continued losartan 25 mg tablet 25 mg PO DAILY Qty: 90 RF: 4 gabapentin 300 mg capsule 300 mg PO TID Qty: 90 RF: 5 Xarelto 20 MG tablet 20 mg PO DAILY RF: 0 Metoprolol Succinate 50 MG TAB.ER.24H 37.5 mg PO DAILY Qty: 90 RF: 4 dofetilide [Tikosyn] 500 mcg capsule 500 mcg PO BID RF: 0 sertraline 25 mg Tablet 25 mg PO DAILY RF: 0 spironolactone 25 mg tablet 25 mg PO DAILY RF: 0 gabapentin 800 mg tablet 800 mg PO TID RF: 0 Discharge Instructions Additional Instructions: Findings:normal Follow up: repeat in 10 yrs time Please call if you develop: fevers >101.5 Nausea or Vomiting Abdominal pain that is not transient DAY SURGERY UNIT POST COLONOSCOPY INSTRUCTIONS 1. Because there will be medication in your system for the next 24 hours, you may feel a little sleepy. Your coordination will be affected. Therefore: a. Do not drive or operate dangerous equipment for 24 hours. b. Do not drink alcohol beverages for 24 hours (not even beer). c. Plan to go home and rest for the day. 2. Generally there are no restrictions on your activity after a day or so has gone by, but you may feel a bit fatigued for a few days. 3 After you arrive home you may have a light meal and return to a normal diet as you can tolerate it without feeling sick to your stomach. 4. After surgery, you may feel pain or discomfort. This should be only transient, but if it persists please contact your doctor. 5. If there are any questions regarding the findings of your procedure, please feel free to contact your doctor. 6. If you are unable to contact your doctor with a problem, contact the hospital at [phone]. 7. Continue all your regular medications unless directed otherwise. I understand the above instructions and have no questions. Signature of Patient or Responsible Adult Escort Date/Time Name of Responsible Adult Escort Signature of Nurse Date/Time Stand Alone Forms: Colonoscopy Post Instructions, Sadaf Godinez (DSU) Activity:: No lifting over 10 pounds or strenuous activity x24 hours Diet:: Small light meals x24 hours Discharge Orders Discharge Orders: Discharge Order (Routine); Ordered 03/01/19 Ordered By: Erlinda Lynch Discharge Data Discharge Date/Time-TO BE ENTERED AT DEPARTURE: 03/01/19 10:32
--- NOTE | 2019-03-01 09:40 | W.COLOREPORT ---
Date of service: 03/01/19 Time of Service: 09:40 Colonoscopy Report Date of procedure: 03/01/19 Pre-op diagnosis general: screening Post-op diagnosis procedure note: other Procedure: CE Surgeon: Erlinda Lynch Anesthesia proc note operative: GETA (0) Estimated blood loss (mL): 0 Pathology: none sent Complications: None Disposition: same day Prep: Miralax/Dulcolax Retraction Time: 12 mins Procedure Description: After informed consent was obtained the patient was taken to the procedure room and placed in a left decubitous position. Monitors were applied and a time out was done. The patients name, date of , procedure, allergies to medications and metal in their body was reviewed. The patient was then sedated. Once sedated and comfortable a rectal exam was done. External exam was normal. Internal exam revealed a normal sphincter tone and no palpable masses. The prostate nl. The scope was then introduced and retrofelexed. no internal hemorrhoids were identified. The scope was then advanced to the cecum without difficulty. The TI and appendiceal orifice were identified. The prep was good. The scope was then slowly retracted over 12 minutes back into the rectum. No polyps AVMs diverticuli or other abnormalities are noted. The scope was removed and the patient was woken up and taken back to Same day surgery in stable condition. The patient tolerated the procedure well and there were no immediate complications. Follow up: The patient should follow up in 10 years unless they develop changes in bowel habits or other new gastrointestinal complaints.
[2019-03-01 09:54] VITALS: BP 105/71; PULSE 60; RESP 16; TEMP 36.5; O2SAT 95
== END 2019-03-01 10:32 | disposition home or self-care (01) ==
LOC: SUR 07:10
PROVIDERS: PCP Nurse Practitioner; Visit Provider Surgery
PROC: 0DJD8ZZ Inspection of Lower Intestinal Tract, Via Natural or Artificial Opening Endoscopic (ICD-10-PCS; CPT 45378; principal; 2019-03-01 08:30)
DX: Z12.11 Encounter for screening for malignant neoplasm of colon (principal)
CPT/HCPCS: 45378; J2250; J3010

== ENCOUNTER 2019-05-17 07:46 | Outpatient (CLI) | payer BC, SELFPAY ==
[2019-05-17 07:49] VITALS: BP 125/81; PULSE 68; RESP 16; TEMP 36.1; O2SAT 99
[2019-05-17] MEDS: methylPREDNISolone ACETATE 40 MG/ML VIAL IJ (08:28)
[2019-05-17 08:29] VITALS: BP 130/66; PULSE 64; RESP 18; O2SAT 99
[2019-05-17] MEDS: Omnipaque 240 MG/ML 50 ML BTL IJ (08:29)
--- NOTE | 2019-05-17 08:32 | PDOC.PAIN ---
Pain Clinic Procedure Note Procedure Note Procedure Note: Lumbar Epidural Steroid Injection Procedure Note COMMENTS: Off Xarelto for 3 days per his prescribing provider. I did review the recent note and MRI. Pain down the bilateral legs DX: Lumbosacral Radiculopathy MO KING has been referred to the [facility] for lumbar epidural steroid injection. The patient was greeted by the nurse who verified patients name and . Patient was then taken to the fluoroscopy suite. The patient was interviewed and the medial record reviewed. There were no medical, pharmacologic, radiographic, or other structural contraindications to attempting fluoroscopically guided lumbar epidural steroid injection. Risks and expected side effects as well as potential benefits of the procedure were reviewed and voiced concerns expressed. The patient consent form was signed and witnessed. Standard patient time-out procedure was performed. The patient was placed in the prone position on the fluoroscopy table and automated blood pressure cuff and pulse oximeter applied. The skin entry point for entering/approaching the epidural space at L5-S1 and marked. Following thorough chlorhexadine preparation of the skin and draping and 1% lidocaine infiltration of the skin entry point and subcutaneous tissues, a 18 gauge Touhy needle was placed under fluoroscopic guidance and with loss of resistance technique into the epidural space. Needle tip placement and depth were aided and confirmed by fluoroscopy. There was no paresthesia or return of blood or CSF through the needle. 1 cc's of Omnipaque 240 was injected with clear epidural spread confirmed with fluoroscopy. 40mg depomedrol was injected. There was not any unusual discomfort expressed by MO KING. Patient's vital signs were stable throughout the procedure and were as recorded in nursing records. Follow up plans and appointments were discussed with patient. Post procedure instruction was given as documented in nursing records and having met discharge criteria and was discharged from the [facility]. COMMENTS: If this procedure is helpful, it can be completed up to 3 times per 12 months.
--- NOTE | 2019-05-17 09:24 | DI.RAD_ITS ---
EXAM: XR PAIN CLINIC LUMBAR SP 2V CLINICAL HISTORY: LUMBAR EPIDURAL SEROID INJECTION TECHNIQUE: COMPARISON: No exams were available for comparison FINDINGS: C-arm fluoroscopy was utilized by Dr. Farfan during reported lumbar epidural injection. Hard copy show s injection of the epidural space at what appears to be the L5-S1 level midline. IMPRESSION:
== END 2019-05-17 08:06 ==
PROVIDERS: PCP Nurse Practitioner; Visit Provider Preventive Medicine Occupational Medicine
DX: M54.17 Radiculopathy, lumbosacral region (principal)
CPT/HCPCS: 62323; 72100; J1030; Q9967

== ENCOUNTER 2019-06-28 07:43 | Outpatient (CLI) | payer BC, SELFPAY ==
--- NOTE | 2019-06-28 11:40 | DI.MRI_ITS ---
EXAM: MR LUMBAR SPINE WO CLINICAL HISTORY: BILAT LEG PAIN M79.606, BACK PAIN M54.9, SPINAL STENOSIS M48.00. TECHNIQUE: Multiplanar multisequence MRI was performed. FINDINGS: The conus medullaris has a normal appearance and location. At L5-S1, there is normal disc signal. No focal disc herniation, central spinal canal or neural fora robert stenosis is present. There are degenerative changes of the facet joints. At L4-L5, there is a mild diffuse disc bulge. There are hypertrophic changes of the facets. The fin dings do result in [id number] central spinal canal stenosis. No significant neural foraminal s tenosis is present. At L3-L4, there is disc desiccation. There is a diffuse disc bulge. There are hypertrophic changes of the facets. Minimal narrowing of the central spinal canal is noted. There is mild bilateral neur al foraminal narrowing, left greater than right. At L2-L3 there is no focal disc herniation, central spinal canal or neural foraminal stenosis. At L1-L2, there is no focal disc herniation, central spinal canal or neural foraminal stenosis. Marrow signal is within normal limits. IMPRESSION: Multilevel degenerative changes in the lumbar spine. There is mild narrowing of the central spinal c anal at L3-4 and L4-L5. There is mild narrowing of the neural foramen bilaterally at L3-L4.
== END 2019-06-28 08:03 ==
PROVIDERS: PCP Nurse Practitioner; Visit Provider Neurological Surgery
DX: M79.604 Pain in right leg (principal); M79.605 Pain in left leg; M54.5 Low back pain; M47.817 Spondylosis without myelopathy or radiculopathy, lumbosacral region; M48.07 Spinal stenosis, lumbosacral region
CPT/HCPCS: 72148

== ENCOUNTER 2020-02-26 10:53 | Outpatient (CLI) | payer BC, SELFPAY ==
--- NOTE | 2020-02-26 14:30 | DI.RAD_ITS ---
EXAM: XR SHOULDER LT COMPLETE 2+V CLINICAL HISTORY: left shoulder pain. TECHNIQUE: 2D digital imaging was performed. COMPARISON: CR XR CHEST 2V PA LATERAL from 08/08/2018 FINDINGS: BONES: No acute fracture is present. No bony destructive lesion is seen. No significant degenerative changes. JOINTS: No dislocation present. SOFT TISSUE: Normal. No soft tissue calcifications. IMPRESSION: Unremarkable radiographs of the left shoulder. DATA REPOSITORY: RADIATION DOSE DELIVERED:
== END 2020-02-26 11:13 ==
PROVIDERS: PCP Nurse Practitioner; Visit Provider Student in an Organized Health Care Education/Training Program
DX: M25.512 Pain in left shoulder (principal)
CPT/HCPCS: 73030

== ENCOUNTER 2020-03-05 01:01 | Outpatient (CLI) | payer BC, SELFPAY ==
--- NOTE | 2020-03-05 08:45 | DI.MRI_ITS ---
EXAM: MR UPPER JOINT LT WO CLINICAL HISTORY: Pain, failure PT, TENDINITIS LT ROTATOR CUFF, BURSITIS, M75.82, M75.22, M75. TECHNIQUE: Multiplanar multisequence MRI was performed. CONTRAST MATERIAL: Noncontrast COMPARISON: Plain films dated 26 February 2020. FINDINGS: There is artifact related to the patient's body habitus. There is poor fat suppression at the periph guillermo of the images. There is spurring at the AC joint a small amount of fluid within the AC joint. There is no significa nt impingement visible on the supraspinatus muscle. There is minimally increased signal in the supra spinatus tendon which could indicate mild tendinosis. The infraspinatus, subscapularis, teres minor and biceps tendons are unremarkable. There is no muscle atrophy. There is no significant fluid in t he subacromial subdeltoid bursa or size. There is a minimal amount of fluid in the subdeltoid bursa. No joint effusion is seen. There is no evidence of fracture or contusion. No labral defects are i dentified. IMPRESSION: Mild supraspinatus tendinosis. DATA REPOSITORY:
== END 2020-03-05 01:21 ==
PROVIDERS: PCP Nurse Practitioner; Visit Provider Student in an Organized Health Care Education/Training Program
DX: M75.82 Other shoulder lesions, left shoulder (principal); M75.22 Bicipital tendinitis, left shoulder
CPT/HCPCS: 73221

== ENCOUNTER 2020-06-04 09:12 | Outpatient (REF) | payer OTHER, SELFPAY ==
[2020-06-04 14:31] LABS: ALT 28 U/L (16-63); AST 16 U/L (15-37); Albumin 3.8 g/dL (3.4-5.0); Alkaline Phosphatase 70 U/L (46-116); Anion Gap 6.5 mmol/L (3-11); BUN 17 mg/dL (7-18); Bilirubin, Total 0.4 mg/dL (0.2-1.0); CO2 29.5 mmol/L (21.0-32.0); CREATININE 0.98 mg/dL (0.70-1.30); Calcium 9.2 mg/dL (8.5-10.1); Calculated LDL 100 mg/dL (<100); Chloride 106 mmol/L (98-107); Cholesterol 163 mg/dL (<200); Glucose 98 mg/dL (74-106); HDL Cholesterol 45 mg/dL (40-60); Potassium 4.5 mmol/L (3.5-5.1); Sodium 142 mmol/L (136-145); Total Protein 7.5 g/dL (6.4-8.2); Triglyceride 90 mg/dL (<150)
== END 2020-06-04 09:32 ==
LOC: NCHCN 09:12
PROVIDERS: PCP Nurse Practitioner; Visit Provider Nurse Practitioner
DX: I48.91 Unspecified atrial fibrillation (principal); I42.9 Cardiomyopathy, unspecified; Z13.89 Encounter for screening for other disorder
CPT/HCPCS: 80053; 80061

== ENCOUNTER 2020-06-30 01:36 | Outpatient (CLI) | payer OTHER, SELFPAY ==
[2020-07-01 11:51] LABS: COVID-19 RT-PCR UVMMC Result Negative (Negative)
== END 2020-06-30 01:37 | disposition home or self-care (01) ==
LOC: LBO 01:36
PROVIDERS: PCP Nurse Practitioner; Visit Provider Student in an Organized Health Care Education/Training Program
DX: Z20.822 Contact with and (suspected) exposure to COVID-19 (principal); Z01.818 Encounter for other preprocedural examination
CPT/HCPCS: U0003

== ENCOUNTER 2020-07-03 08:31 | Day surgery (SDC) | payer OTHER, SELFPAY ==
[2020-07-03] VITALS (7 sets, daily range): BP systolic 127–134; BP diastolic 72–87; PULSE 59–74; RESP 12–19; TEMP 36.4–36.6; O2SAT 98–100
[2020-07-03] MEDS: Lactated Ringers 1,000 ML 100 ML IV (09:01)
--- NOTE | 2020-07-03 10:07 | W.PM.DSUDISC ---
Discharge Plan Disposition Patient Disposition: HOME Condition: Stable Discharge Details Reason For Visit: Left shoulder stiffness Attending Provider: Rogerio Alvarez Primary Care Provider: Dinora Wilks Home Meds and New Rx's Prescriptions: New naproxen 250 mg tablet 250 - 500 mg PO BID PRN (Reason: Moderate pain or swelling) Qty: 60 RF: 0 oxycodone 5 mg tablet 5 - 10 mg PO Q4H PRN (Reason: moderate to severe pain) Qty: 12 RF: 0 Continued metoprolol tartrate 25 mg tablet 25 mg PO DAILY RF: 0 spironolactone 25 mg tablet 25 mg PO DAILY RF: 0 acetaminophen [Tylenol Extra Strength] 500 mg tablet 1,000 mg PO TID PRNRF: 0 magnesium oxide 400 mg magnesium tablet 400 mg PO DAILY RF: 0 cholecalciferol (vitamin D3) 625 mcg (25,000 unit) capsule 625 mcg PO BID RF: 0 Xarelto 20 MG tablet 20 mg PO DAILY RF: 0 dofetilide [Tikosyn] 500 mcg capsule 500 mcg PO BID RF: 0 gabapentin 600 mg tablet 1,200 mg PO TID Qty: 180 RF: 5 Discontinued ibuprofen 200 mg tablet 200 mg PO Q6H PRNRF: 0 Discharge Instructions Additional Instructions: Surgery: Left shoulder manipulation under anesthesia Activity: Advance to full use of left shoulder. Encourage daily stretching exercises in all directions to optimize range of motion. Avoid heavy lifting and reaching until comfortable. Discontinue sling when at home. May use sling out of house while nerve block is in effect for a few days. Start physical therapy as prescribed tomorrow. Prescriptions: Resume daily home dose Xarelto tomorrow evening Naproxen 250 mg take 1-2 every 12 hours with a meal as needed for moderate pain or swelling Oxycodone 5 mg take 1-2 every 4-6 hours as needed for severe pain You may use [id number] Tylenol (acetaminophen) as needed for mild pain. These pain medications may be taken all at once or in different combinations as needed. Also, recommend Colace (docusate) as a stool softener as surgery and pain medicine cause constipation. Dressings: None Follow-up: 10-[address] Alvarez Let us know right away if you develop any redness, drainage, fevers, chest pain, or trouble breathing. Do not drink alcohol or drive for at least 24 hours after anesthesia. Please call the office during business hours with any questions or concerns. Referrals: Rogerio Alvarez MD [ [facility] STAFF PHYSICIAN] - Discharge Orders Discharge Orders: Discharge Order (Routine); Ordered 07/03/20 Ordered By: Rogerio Alvarez DS: Diagnosis Discharge Diagnosis (1) Contracture, left shoulder: Status: Acute (2) Adhesive capsulitis of left shoulder: Status: Acute
--- NOTE | 2020-07-03 10:11 | ROE_ITS ---
Date of service: 07/03/20 Time of Service: 10:00 Operative Note Operative Note DATE OF PROCEDURE: 07/03/20 PRE-OP DIAGNOSIS: 1. Left shoulder adhesive capsulitis POST-OP DIAGNOSIS: same PROCEDURE: Left shoulder manipulation under anesthesia, CPT # 63361 SURGEON: Rogerio Alvarez LEAD SYSTEMS ENGINEER: None None ANESTHESIA TYPE: General:No Airway and Primary Nerve Block Refer to Anesthesia Record Patient was transported to: PACU Patient's condition: stable Indications: Please see complete medical record for details. Findings: Preoperative range of motion: 90 degrees forward elevation, 5 degrees external rotation, internal rotation 45 degrees in 90 degrees of abduction Contralateral shoulder range of motion: 145 degrees forward elevation, 65 degrees external rotation, internal rotation 90 degrees and 90 degrees of abduction Procedure Description: In the operating room, general anesthesia was induced. The patient was positioned supine on the operating room table. All bony prominences were well-padded. Preoperative antibiotics were omitted. The correct patient, procedure, and side of the procedure were all verified prior to incision. Under general anesthesia, with neuromuscular relaxation the shoulder was brought into forward elevation while stabilizing scapula taking care to maintain a short fulcrum to prevent injury. Steady pressure in the forward elevation direction achieved excellent capsular releases and full forward elevation. The arm was then brought into abduction at the patient's side and steady external rotation again maintaining a short lever arm with excellent anterior capsular releases into full external rotation. Lastly the arm was brought into 90 degrees of abduction and final releases performed achieving full internal and external rotation in this position. For the next 10 minutes, the shoulder was brought through full complete range of motion and circumduction easily achieving full forward elevation 145 degrees, full external rotation with the arm at the side past 65 degrees, and full internal and external rotation in 90 degrees of abduction nearly 90 degrees of each, equal and symmetrical to the contralateral side. Passive guided motion was repeated without resistance in all directions over 30 times. The patient awoke from anesthesia without complication and was transferred to the recovery room in a stable condition.
[2020-07-03] MEDS: fentaNYL 100 MCG/2 ML VIAL IVP (10:35)
== END 2020-07-03 12:27 | disposition home or self-care (01) ==
PROVIDERS: PCP Nurse Practitioner; Visit Provider Student in an Organized Health Care Education/Training Program
PROC: (CPT 23700; principal; 2020-07-03 10:00)
DX: M24.512 Contracture, left shoulder (principal); M75.02 Adhesive capsulitis of left shoulder; G89.18 Other acute postprocedural pain
CPT/HCPCS: 23700; 76942; J2250; J3010

== ENCOUNTER 2021-06-12 09:25 | Emergency (ER) | payer OTHER, SELFPAY ==
[2021-06-12 09:33] VITALS: BP 127/78; PULSE 65; RESP 16; TEMP 36.4; O2SAT 97
--- NOTE | 2021-06-12 10:22 | W.ED.GENAD ---
Discharge Plan Disposition Patient Disposition: HOME Condition: Stable Discharge Details Clinical Impression: Acute lumbosacral myofascial strain Primary Care Provider: Dinora Wilks ED Provider: Martin Frank Home Meds and New Rx's Prescriptions: New cyclobenzaprine 10 mg tablet 10 mg PO TID PRN (Reason: muscle spasm) Qty: 20 RF: 0 Continued metoprolol tartrate 25 mg tablet 25 mg PO DAILY RF: 0 spironolactone 25 mg tablet 25 mg PO DAILY RF: 0 acetaminophen [Tylenol Extra Strength] 500 mg tablet 1,000 mg PO TID PRNRF: 0 magnesium oxide 400 mg magnesium tablet 400 mg PO DAILY RF: 0 cholecalciferol (vitamin D3) 625 mcg (25,000 unit) capsule 625 mcg PO BID RF: 0 Xarelto 20 MG tablet 20 mg PO DAILY RF: 0 dofetilide [Tikosyn] 500 mcg capsule 500 mcg PO BID RF: 0 gabapentin 600 mg tablet 1,200 mg PO TID Qty: 180 RF: 5 omeprazole 20 mg capsule,delayed release(DR/EC) 20 mg PO DAILY RF: 0 NAC 600 mg tablet 600 mg PO BID RF: 0 Discharge Instructions Instructions: Low Back Strain (ED), Acute Low Back Pain (ED) Additional Instructions: You may continue to use acetaminophen as discussed. You may also try [id number] lidocaine patches or cream and use as directed on packaging. If you develop any fever, change in bowel or bladder function, or severe neurological symptoms of the lower extremities please return immediately to the emergency department for reassessment. You may perform a mild activity but no heavy lifting, bending or twisting. Stand Alone Forms: Physical Therapy Referral Referrals: [facility] [Provider Group] - 1 week Dinora Wilks [Primary Care Provider] - 1 week (For reassessment) Medical Decision Making Patient here for back pain. LOW risk for ABDOMINAL AORTIC ANEURYSM, CAUDA EQUINA SYNDROME, EPIDURAL MASS LESION, SPINAL STENOSIS, OR HERNIATED DISK CAUSING SEVERE STENOSIS, thus I consider the discharge disposition reasonable. We have discussed the diagnosis and risks, and we agree with discharging home to follow-up with their primary doctor, pain control, and physical therapy. Did discuss with patient potential opioid use given that he has anticoagulated and we cannot use NSAIDs. After discussion of risk versus benefit patient stated that he would prefer to use nonnarcotic medications such as Tylenol and muscle relaxers prior to narcotic use. I feel this is reasonable and patient to follow-up with primary care provider or return to emergency department if further pain control as needed. We also discussed returning to the Emergency Department immediately if new or worsening symptoms occur. We have discussed the symptoms which are most concerning (e.g., saddle anesthesia, urinary or bowel incontinence or retention, changing or worsening pain) that necessitate immediate return. Given patient's mechanism of injury which was a simple bending type motion I do not feel that radiological imaging is needed in this aligns with ACEP guidelines for back pain. HPI General Mode of arrival: ambulatory. Date/Time Provider Initiated Documentation: 06/12/21 09:31. Limitations to Documentation: no limitations. Information obtained by: patient. History of Present Illness 55 year old M presents to the emergency department with the chief complaint of back pain, described as moderate, with intensity rated at 8. Quality is described as aching and sharp, and is localized to the back. Patient extremity. Patient started experiencing this day(s) (2) and it has been constant. No relieving factors improve symptom(s), Movement worsens symptoms . Patient notes no other symptoms.. Patient did receive the following treatments prior to arrival, cold therapy, heat therapy and other (Acetaminophen) Related Data Home Medications Medication Instructions Recorded Confirmed Xarelto 20 mg PO DAILY tab-cap 12/26/17 06/12/21 dofetilide 500 mcg capsule 500 mcg PO BID cap 09/14/18 06/12/21 metoprolol tartrate 25 mg tablet 25 mg PO DAILY 04/04/19 06/12/21 spironolactone 25 mg tablet 25 mg PO DAILY 07/25/19 06/12/21 acetaminophen 500 mg tablet 1,000 mg PO TID PRN tab 12/04/19 06/12/21 cholecalciferol (vitamin D3) 625 625 mcg PO BID 02/26/20 06/12/21 mcg (25,000 unit) capsule magnesium oxide 400 mg PO DAILY 02/26/20 06/12/21 gabapentin 600 mg tablet 1,200 mg PO TID #180 tab 02/02/21 06/12/21 NAC 600 mg PO BID 06/12/21 06/12/21 cyclobenzaprine 10 mg PO TID PRN #20 tab 06/12/21 omeprazole 20 mg PO DAILY 06/12/21 06/12/21 Previous Rx's Medication Instructions Recorded gabapentin 600 mg tablet 1,200 mg PO TID #180 tab 02/02/21 cyclobenzaprine 10 mg PO TID PRN #20 tab 06/12/21 Allergies Allergy/AdvReac Type Severity Reaction Status Date / Time doxycycline Allergy Intermediate Hives Unverified 06/12/21 09:39 amoxicillin Allergy Unknown Hives Unverified 06/12/21 09:39 General Stated Complaint: Nk/Back Pain KYREE: 3 Review of Systems Constitutional Constitutional: Denies chills and Denies fever(s) Cardiovascular Cardiovascular: Denies chest pain and Denies dyspnea on exertion Respiratory Respiratory: Denies cough and Denies dyspnea on exertion Gastrointestinal Gastrointestinal: Denies abdominal pain, Denies change in bowel habits, Denies diarrhea, Denies nausea and Denies vomiting Genitourinary Genitourinary: Denies difficulty urinating and Denies urinary incontinence Musculoskeletal Musculoskeletal: Reports as per HPI and Reports back pain Neurologic Neurologic: Denies sensory deficit PFSH All Active Problems (Updated 06/12/21 @ 10:23 by Martin Frank NP) Acute lumbosacral myofascial strain (Acute) Contracture, left shoulder (Acute) Adhesive capsulitis of left shoulder (Acute) Tendonitis of left rotator cuff (Acute) Biceps tendinitis of left shoulder (Acute) Bursitis of left shoulder (Acute) Lumbar stenosis (Acute) Leg pain, bilateral (Acute) Fatigue (Acute) Femoral acetabular impingement (Acute) Carpal tunnel syndrome on both sides (Chronic) 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) Chronic low back pain (Chronic) Alcohol abuse (Chronic) Anxiety (Chronic) Depression (Chronic) Cardiomyopathy (Acute) FRANCISCO (obstructive sleep apnea) (Chronic) CPAP Polyarthralgia (Acute) Sleep apnea (Chronic) Atrial fibrillation (Chronic) Medical History Alcohol abuse Anxiety Atrial fibrillation Biceps tendinitis of left shoulder Bursitis of left shoulder Cardiomyopathy Depression History of cardioversion 09/2018 or 10/2018 History of postoperative nausea and vomiting History of tennis elbow Lumbar stenosis FRANCISCO (obstructive sleep apnea) CPAP Polyarthralgia Sleep apnea Tendonitis of left rotator cuff Surgical History History of right tennis elbow S/P ablation of atrial fibrillation Family History Mother Diabetes Heart disease Social History Smoking/Tobacco Use Status: Never Smoking risk assessment performed?: Yes Alcohol Intake: former Year quit: 2018 Drug use: Occasionally Substance use type: marijuana Household members: spouse Housing: house Number of Children: 2 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 Current gender identity: male What is your relationship status?: Panel score (0-1 are the most socially isolated patients): 1 Do you feel safe at home: Yes Do you feel safe in your relationship?: Yes Exam Const General: cooperative and no acute distress Orientation: alert, awake and oriented x3 Neck Neck: normal visual inspection, full ROM and no meningeal signs Resp Effort & Inspection: normal respiratory effort Auscultation: clear to auscultation bilaterally Cardio Rate: regular rate Rhythm: regular rhythm Heart Sounds: S1 normal and S2 normal Back/Spine/Pelvis Back: no CVA tenderness Thoracic/Lumbar Spine: No mass, pain with thoraco-lumbar ROM, paraspinal tenderness, thoraco-lumbar ROM limited, No lumbar spinal tenderness and No straight leg raise positive Pelvis: no pain with anterior-posterior compression and no pain with lateral compression Neuro General: patient alert, patient awake and patient oriented x3 DTR's: Rt Patellar: 2+, Lt Patellar: 2+, Rt Ankle: 2+ and Lt Ankle: 2+ Course Vital Signs Vital signs: Vital Signs Temperature 36.4 C L 06/12/21 09:33 Pulse 65 06/12/21 09:33 Respiratory Rate 16 06/12/21 09:33 Blood Pressure 127/78 06/12/21 09:33 Pulse Oximetry 97 06/12/21 09:33 Temperature 36.4 C L 06/12/21 09:33 Temperature Source Skin 06/12/21 09:33 Pulse 65 06/12/21 09:33 Respiratory Rate 16 06/12/21 09:33 Respiratory Effort 06/12/21 09:33 Blood Pressure 127/78 06/12/21 09:33 Blood Pressure Position Supine 06/12/21 09:33 Pulse Oximetry 97 06/12/21 09:33 Oxygen Delivery Method Room Air 06/12/21 09:33 Oxygen Flow Rate 0 06/12/21 09:33 Pain Level 8 06/12/21 09:42
== END 2021-06-12 11:10 | disposition home or self-care (01) ==
PROVIDERS: Emergency Provider Nurse Practitioner Family; PCP Nurse Practitioner
DX: S39.012A Strain of muscle, fascia and tendon of lower back, initial encounter (principal); X58.XXXA Exposure to other specified factors, initial encounter
CPT/HCPCS: 99283

== ENCOUNTER 2021-07-07 16:48 | Outpatient (REF) | payer OTHER, SELFPAY ==
[2021-07-07 20:23] LABS: HCT 40.4 % (40.0-50.0); HGB 12.8 g/dL (13.5-17.5); MCH 26.1 pg (27.0-33.0); MCHC 31.7 % (32.0-36.0); MCV 82.4 fL (80-95); MPV 10.2 fL (8.0-11.0); Platelet Count 241 10^3/uL (130-400); RDW 13.1 % (11.8-14.1); RDW-SD 39.5 fL; WBC 7.44 10^3/uL (4.4-10.8)
[2021-07-07 20:45] LABS: ALT 39 U/L (16-63); AST 19 U/L (15-37); Albumin 3.9 g/dL (3.4-5.0); Alkaline Phosphatase 86 U/L (46-116); Anion Gap 7.5 mmol/L (3-11); BUN 20 mg/dL (7-18); Bilirubin, Total 0.4 mg/dL (0.2-1.0); CO2 29.5 mmol/L (21.0-32.0); Chloride 106 mmol/L (98-107); Glucose 117 mg/dL (74-106); Potassium 4.3 mmol/L (3.5-5.1); Sodium 143 mmol/L (136-145); TSH 1.12 uIU/mL (0.36-3.74); Total Protein 8.1 g/dL (6.4-8.2)
== END 2021-07-07 16:49 | disposition home or self-care (01) ==
LOC: LBN 16:48
PROVIDERS: PCP Nurse Practitioner; Visit Provider Nurse Practitioner Family
DX: F32.9 Major depressive disorder, single episode, unspecified (principal); M79.604 Pain in right leg; M79.605 Pain in left leg
CPT/HCPCS: 80053; 85027; 84443

== ENCOUNTER 2022-07-08 09:53 | Outpatient (REF) | payer MEDICARE, SELFPAY ==
[2022-07-08 15:07] LABS: Abs Immature Grans 0.01 10^3/uL (0.0-0.06); Absolute Basophil Count 0.05 10^3/uL (0.0-0.2); Absolute Eosinophil Count 0.18 10^3/uL (0.0-0.7); Absolute Lymphocyte Count 1.69 10^3/uL (1.2-3.4); Absolute Neutrophil Count 3.59 10^3/uL (1.2-6.7); Basophils % 0.8; HCT 38.7 % (40.0-50.0); HGB 12.8 g/dL (13.5-17.5); Immature Grans % 0.2; Lymphocytes % 28.5; MCH 26.6 pg (27.0-33.0); MCHC 33.1 % (32.0-36.0); MCV 81 fL (80-95); Monocytes % 6.8; Neutrophils % 60.7; Platelet Count 237 10^3/uL (130-400); RBC 4.81 10^6/uL (4.36-5.78); RDW 13.5 % (11.8-14.1); RDW-SD 39.6 fL; WBC 5.92 10^3/uL (4.4-10.8)
[2022-07-08 15:23] LABS: ALT 26 U/L (16-63); AST 16 U/L (15-37); Albumin 3.8 g/dL (3.4-5.0); Alkaline Phosphatase 75 U/L (46-116); Anion Gap 7.4 mmol/L (3-11); BUN 27 mg/dL (7-18); Bilirubin, Total 0.3 mg/dL (0.2-1.0); CO2 28.6 mmol/L (21.0-32.0); CREATININE 1.1 mg/dL (0.70-1.30); Calcium 9.4 mg/dL (8.5-10.1); Calculated LDL 145 mg/dL (<100); Chloride 105 mmol/L (98-107); Cholesterol 219 mg/dL (<200); Estimated GFR 79.77 (mL/min/1.73m2); Glucose 109 mg/dL (74-106); HDL Cholesterol 48 mg/dL (40-60); Potassium 4.2 mmol/L (3.5-5.1); Sodium 141 mmol/L (136-145); Triglyceride 131 mg/dL (<150)
== END 2022-07-08 09:54 | disposition home or self-care (01) ==
LOC: NCHCN 09:53
PROVIDERS: PCP Nurse Practitioner; Visit Provider Nurse Practitioner Family
DX: F32.89 Other specified depressive episodes (principal); E66.8 Other obesity; Z79.899 Other long term (current) drug therapy
CPT/HCPCS: 80053; 80061; 85025

== ENCOUNTER 2023-07-25 08:18 | Outpatient (CLI) | payer MEDICARE, SELFPAY ==
[2023-07-25 16:23] LABS: ALT 76 U/L (16-63); AST 19 U/L (15-37); Albumin 3.4 g/dL (3.4-5.0); Alkaline Phosphatase 202 U/L (46-116); Anion Gap 9.9 mmol/L (3-11); BUN 22 mg/dL (7-18); Bilirubin, Total 0.3 mg/dL (0.2-1.0); CO2 28.1 mmol/L (21.0-32.0); CREATININE 1.1 mg/dL (0.70-1.30); Calcium 9.1 mg/dL (8.5-10.1); Chloride 106 mmol/L (98-107); Estimated GFR 79.28 (mL/min/1.73m2); Glucose 98 mg/dL (74-106); Potassium 3.6 mmol/L (3.5-5.1); Sodium 144 mmol/L (136-145); Total Protein 7.9 g/dL (6.4-8.2)
== END 2023-07-25 08:19 | disposition home or self-care (01) ==
LOC: LBO 07-26 08:18
PROVIDERS: PCP Nurse Practitioner Family; Visit Provider Nurse Practitioner Family
DX: I48.91 Unspecified atrial fibrillation (principal); F32.89 Other specified depressive episodes; R39.11 Hesitancy of micturition; Z12.5 Encounter for screening for malignant neoplasm of prostate; Z86.73 Personal history of transient ischemic attack (TIA), and cerebral infarction without residual deficits; Z79.899 Other long term (current) drug therapy
CPT/HCPCS: 36415; 80053; 84154

== ENCOUNTER 2024-07-11 10:49 | Outpatient (REF) | payer MEDICARE, SELFPAY ==
[2024-07-11 15:35] LABS: HCT 38.6 % (40.0-50.0); HGB 12.3 g/dL (13.5-17.5); MCH 25.6 pg (27.0-33.0); MCHC 31.9 % (32.0-36.0); MCV 80 fL (80-95); MPV 9.7 fL (8.0-11.0); Platelet Count 224 10^3/uL (130-400); RBC 4.81 10^6/uL (4.36-5.78); RDW 13.5 % (11.8-14.1); RDW-SD 39.7 fL
[2024-07-11 16:23] LABS: ALT 21 U/L (16-63); AST 18 U/L (15-37); Albumin 3.7 g/dL (3.4-5.0); Alkaline Phosphatase 90 U/L (46-116); Anion Gap 6.2 mmol/L (3-11); BUN 25 mg/dL (7-18); CO2 29.8 mmol/L (21.0-32.0); CREATININE 1.1 mg/dL (0.70-1.30); Calcium 9.1 mg/dL (8.5-10.1); Calculated LDL 51 mg/dL (<100); Chloride 107 mmol/L (98-107); Cholesterol 115 mg/dL (<200); Estimated GFR 78.79 (mL/min/1.73m2); Glucose 100 mg/dL (74-106); HDL Cholesterol 47 mg/dL (40-60); Sodium 143 mmol/L (136-145); Total Protein 7.8 g/dL (6.4-8.2); Triglyceride 86 mg/dL (<150)
[2024-07-12 13:40] LABS: Hepatitis C Ab w Rflx HCV PCR Negative (Negative)
== END 2024-07-11 10:50 | disposition home or self-care (01) ==
LOC: NCHCN 10:49
PROVIDERS: PCP Nurse Practitioner Family; Visit Provider Nurse Practitioner Family
DX: Z00.00 Encounter for general adult medical examination without abnormal findings (principal)
CPT/HCPCS: 80053; 80061; 85027; 86803

== ENCOUNTER 2024-12-05 15:23 | Outpatient (REF) | payer MEDICARE, SELFPAY ==
[2024-12-05 16:39] LABS: ALT 33 U/L (16-63); AST 19 U/L (15-37); Albumin 3.7 g/dL (3.4-5.0); Alkaline Phosphatase 104 U/L (46-116); Anion Gap 7.0 mmol/L (3-11); BUN 13 mg/dL (7-18); Bilirubin, Total 0.6 mg/dL (0.2-1.0); CO2 32.0 mmol/L (21.0-32.0); Calcium 9.1 mg/dL (8.5-10.1); Chloride 105 mmol/L (98-107); Estimated GFR 87.78 (mL/min/1.73m2); Glucose 111 mg/dL (74-106); Magnesium 2.0 mg/dL (1.8-2.4); Potassium 4.1 mmol/L (3.5-5.1); Sodium 144 mmol/L (136-145); Total Protein 7.6 g/dL (6.4-8.2)
== END 2024-12-05 15:24 | disposition home or self-care (01) ==
LOC: NCHCN 15:23
PROVIDERS: PCP Nurse Practitioner Family; Visit Provider Nurse Practitioner Family
DX: I48.0 Paroxysmal atrial fibrillation (principal)
CPT/HCPCS: 80053; 83735